=== PATIENT | male | born 1975 | race Caucasian/White ===

== ENCOUNTER 2017-10-02 07:23 | Observation (INO) | payer BC, OTHER ==
[2017-09-27 08:48] VITALS: BMI 35.0
[~2017-10-02] VITALS: Ht 180.3 cm; Wt 114.5 kg
[2017-10-02] VITALS (10 sets, daily range): BP systolic 126–189; BP diastolic 72–90; PULSE 75–97; TEMP 36–37; O2SAT 96–100; Ht 180.3 cm; Wt 114.5 kg
[~2017-10-02 07:23] MED LIST: CEFAZOLIN 2000MG IV PUSH 15 ML IV SCH; LACTATED RINGER'S 1000ML 1,000 ML IV SCH; MESA1TAB4 PO; METO100T44 PO; MISC4CAP PO; OMEG10007 PO
[2017-10-02] MEDS ORDERED: FENTANYL CITRATE INJ 50 MCG/1 ML 2 ML VIAL ONE ×5 (09:49→13:30)
[2017-10-02] MEDS ORDERED: LIDOCAINE HCL 2% 2 ML VIAL (20MG/ML) ONE (09:49)
[2017-10-02] MEDS ORDERED: ONDANSETRON INJ 2 MG/ML 2 ML VIAL ONE (09:49)
[2017-10-02] MEDS ORDERED: MIDAZOLAM HCL 1 MG/ML 2ML VIAL ONE (09:49)
[2017-10-02] MEDS ORDERED: PROPOFOL IV EMULSION 10 MG/ML 20 ML VIAL IV ONE (09:49)
[2017-10-02] MEDS ORDERED: CEFAZOLIN SOD 1 GM VIAL ONE (09:53)
[2017-10-02] MEDS ORDERED: LIDOCAINE HCL 1% 20 ML VIAL ONE (09:53)
[2017-10-02] MEDS ORDERED: BUPIVACAINE 0.5 % 5 MG/1 ML MPF 30ML VIAL ONE (09:54)
[2017-10-02] MEDS ORDERED: BACITRACIN 50000 UNIT VIAL ONE (09:54)
--- NOTE | 2017-10-02 10:02 | History & Physical Bridge Note ---
H&P Re-Evaluation Bridge Note: I have examined the patient, reviewed the History & Physical and in the interval since the performance of the History & Physical I have noted the following changes of clinical significance: No changes noted
[2017-10-02] MEDS ORDERED: DEXAMETHASONE SOD INJ 4 MG/ML VIAL ONE (10:41)
[2017-10-02] MEDS ORDERED: SUCCINYLCHOLINE CHLORIDE 20 MG/ML 10 ML VIAL IV ONE (11:35)
[2017-10-02] MEDS ORDERED: ROCURONIUM BROMIDE 10 MG/ML 5 ML VIAL IV ONE (11:39)
--- NOTE | 2017-10-02 11:53 | [facility] Operative Report ---
Operative Report Operative Date Oct 02, 2017. Pre-Operative Diagnosis Suture sinus, right lower quadrant abdomen Post-Operative Diagnosis Suture sinus, right lower quadrant abdomen incisional hernia Procedure(s) Performed Wound Exploration, Removal of Suture Foreign Body Right lower quadrant repair incisional hernia Surgeon Dr. Donta Garrett Reports Developer Surgeon(s) None Estimated Blood Loss 50 ml Findings 3 suture sinuses and 4 sutures 3 cm incisional hernia Specimens Microbiology #1: Abdominal Wound Routine C/S, Gram Stain, Anerobic/Aerobic Sent to lab at 1036; carried by OR aide #2. Suture Sinus, Right Lower Quadrant Abdomen Routine C/S, Gram Stain, Anerobic/Aerobic Sent to lab at 1133;carried by OR aide #3. Tissue Culture, Explanted Suture, Right Lower Quadrant Abdomen Routine C/S, Gram Stain, Anerobic Aerobic Sent to lab at 1133;carried by OR aide Permanent: A.) Omentum Drains None Anesthesia Type General Complication(s) none Disposition Recovery Room / PACU I attest to the content of the Intraoperative Record and any orders documented therein. Any exceptions are noted below.
[2017-10-02] MEDS ORDERED: ATROPINE SULFATE 0.1 MG/ML 5ML SYR IV PRN (12:00)
[2017-10-02] MEDS ORDERED: LABETALOL HCL IV 5 MG/ML 20ML IV PRN (12:00)
[2017-10-02] MEDS ORDERED: HYDROCODONE/ACETAMIN 5/325MG TAB PO PRN (12:00)
[2017-10-02] MEDS ORDERED: HYDROmorphone INJ 2 MG/ML SYR/VIAL IV PRN (12:00)
[2017-10-02] MEDS ORDERED: EpHEDrine SULFATE INJ 50 MG/ML AMP IV PRN (12:00)
[2017-10-02] MEDS ORDERED: PROMETHAZINE HCL INJ 25 MG in SODIUM CHLORIDE 0.9% 50ML 50 ML IV PRN (12:00)
[2017-10-02] MEDS ORDERED: NALOXONE HCL 0.4 MG/1 ML VIAL/CARP IV PRN (12:00)
[2017-10-02] MEDS ORDERED: ONDANSETRON INJ 2 MG/ML 2 ML VIAL IV PRN (12:00)
[2017-10-02] MEDS ORDERED: FENTANYL CITRATE INJ 50 MCG/1 ML 2 ML VIAL IV PRN (12:00)
[2017-10-02] MEDS ORDERED: HYDROmorphone INJ 0.5 MG/0.5 ML SYR IV PRN (12:00)
[2017-10-02] MEDS ORDERED: FLUMAZENIL 0.1 MG/1 ML 10 ML VIAL IV PRN (12:00)
[2017-10-02] MEDS ORDERED: NALOXONE HCL 0.4 MG/1 ML VIAL/CARP ONE (12:44)
--- NOTE | 2017-10-02 13:50 | OPERATIVE REPORT ---
DATE OF OPERATION: 10/02/2017 NAME OF OPERATION: Wound exploration with removal of suture foreign bodies and debridement of suture sinuses and repair of incisional hernia. STAFF SURGEON: Dr. Garrett. ANESTHESIA: General. FINDINGS: Patient had a chronic suture sinus tract which was associated with significant scar tissue and at least 3 suture sinuses with suture foreign body and then an additional suture was found. This was all associated with the lower edge of an incisional hernia which contained a significant amount of omentum. PROCEDURE: Patient was brought in the operating room and placed on the operating table in supine position. His lower abdomen was prepped and draped in usual fashion. 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 This incision was opened. I carried dissection down through dense scar tissue, culturing the sinus tract and some of the tissue. I did encounter granulomas. It was somewhat difficult with the dissection because of the scar tissue. I did encounter some normal tissue and eventually found 3 suture foreign bodies associated with sinus tracts and significant granulation tissue. I also found an additional suture. During the debridement, we did enter the hernia sac which contained significant omentum and I felt that it was not going to be prudent to leave the omentum and hernia and try to leave the wound open for a wound VAC. At this point, the hernia sac was opened. The omentum was dissected free with some difficulty because of adhesions. Part of it was excised. The remainder reduced. The hernia defect was approximately 3 cm in diameter. During this exposure, I did find the third suture sinus and a fourth suture. At this point, I felt it would be prudent to close the defect primarily because of the infection and I did not want to place mesh using #1 PDS suture. After appropriate hemostasis and debridement of additional necrotic tissue, I packed the wound with antibiotic-soaked Kerlix and a gauze dressing. The patient was then transferred to recovery room in stable condition. Plan was to consult wound care and most likely place a wound VAC. I attest to the content of the Intraoperative Record and any orders documented therein. Any exception s are noted below.
[2017-10-02] MEDS ORDERED: LABETALOL HCL IV 5 MG/ML 20ML IV ONE ×2 (13:52)
[2017-10-02] MEDS ORDERED: IV FLUIDS COMPLETED PRN (15:15)
[2017-10-02] MEDS ORDERED: LACTATED RINGER'S 1000ML 1,000 ML IV SCH (15:15)
--- NOTE | 2017-10-02 15:17 | Medical Consult ---
Consultation Date of Consultation: Oct 02, 2017. Attending Physician: Donta Garrett M.D. History of Present Illness This is a patient with past medical history of ulcerative colitis. Home medications mesalamine, prednisone. Has been on ciprofloxacin in recent past. Other home medication of metoprolol succinate Patient of surgeon Dr. Donta Garrett Pre-Operative Diagnosis Suture sinus, right lower quadrant abdomen Post-Operative Diagnosis 10/02/17 Suture sinus, right lower quadrant abdomen, incisional hernia Procedure(s) Performed by surgeon 10/02/17 Wound Exploration, Removal of Suture Foreign Body Right lower quadrant, repair incisional hernia Hospitalist medicine consult primarily asked for medical management of monitoring patient's respiratory status post-op Patient arrived on medical wards with BIPAP, mentating well, follows directions , vitals stable 128/80 with heart rate 82 bpm, 100% saturation on BIPAP, Temp is 36.7 F Hospitalist ordered labs and chest X ray, labs and X rays reviewed Patient transitioned from BIPAP to nasal cannula then to room air Social History Smoking Status: Former Smoker Drug Use: none Marital Status: single Occupation Status: employed Allergies Coded Allergies: No Known Allergies (Unverified , 09/27/17) Current Inpatient Medications Current Inpatient Medications Medications (Trade) Dose Ordered Sig/Karolina Route Start Time Stop Time Status Last Admin Dose Admin Cefazolin Sodium 15 ml @ 3.75 mls/ min PREOP IV 10/02/17 06:00 10/02/17 18:00 10/02/17 10:06 3.75 MLS/MIN Lactated Ringer's 1,000 ml @ 15 mls/hr Q24H IV 10/02/17 06:00 10/03/17 05:59 10/02/17 08:06 15 MLS/HR Metoprolol Succinate (Toprol Xl Tab) 100 mg BID PO 10/02/17 21:00 11/01/17 20:59 UNV Non-Formulary Medication (Mesalamine (Asacol Hd)) 1,600 mg BID PO 10/02/17 21:00 11/01/17 20:59 UNV Lactated Ringer's 1,000 ml @ 50 mls/hr Q20H IV 10/02/17 12:00 11/01/17 11:59 UNV Acetaminophen/ Hydrocodone Bitart ([place] 5/325 Tab) 1 tab Q4 PRN PO 10/02/17 12:00 10/16/17 11:59 UNV Acetaminophen/ Hydrocodone Bitart ([place] 5/325 Tab) 2 tab Q4 PRN PO 10/02/17 12:00 10/16/17 11:59 UNV Hydromorphone HCl (Dilaudid Inj) 0.5 mg Q3H PRN IV 10/02/17 12:00 10/16/17 11:59 UNV Hydromorphone HCl (Dilaudid Inj) 1 mg Q3H PRN IV 10/02/17 12:00 10/16/17 11:59 UNV Promethazine HCl 25 mg/Sodium Chloride 51 ml @ 204 mls/hr Q6H PRN IV 10/02/17 12:00 11/01/17 11:59 UNV Ondansetron HCl (Zofran Inj) 4 mg Q6H PRN IV 10/02/17 12:00 11/01/17 11:59 UNV Senna/Docusate Sodium (Senokot S Tab) 1 tab BID PO 10/02/17 21:00 11/01/17 20:59 UNV Piperacillin Sod/ Tazobactam Sod 3.375 gm/Dextrose 115 ml @ 28.75 mls/ hr Q8 IV 10/02/17 14:00 10/12/17 13:59 UNV Fentanyl Citrate (Fentanyl Inj) 25 mcg Q5M PRN IV 10/02/17 12:00 10/03/17 11:59 UNV Naloxone HCl (Narcan Inj) 0.2 mg Q2M PRN IV 10/02/17 12:00 10/03/17 11:59 UNV Flumazenil (Romazicon Inj) 0.2 mg Q2M PRN IV 10/02/17 12:00 10/03/17 11:59 UNV Labetalol HCl (Normodyne IV) 5 mg Q5M PRN IV 10/02/17 12:00 10/03/17 11:59 UNV Ephedrine Sulfate (EpHEDrine SULFATE INJ) 5 mg Q5M PRN IV 10/02/17 12:00 10/03/17 11:59 UNV Atropine Sulfate (Atropine Sulfate 0.1mg/ml Inj) 0.5 mg Q1M PRN IV 10/02/17 12:00 10/03/17 11:59 UNV Miscellaneous (Iv Fluids Completed) 1 ea PRN PRN N/A 10/02/17 15:15 10/02/18 15:14 UNV Review of Systems Constitutional: No fever Eyes: No worsening of vision, No eye pain, No diplopia ENT: No hearing loss, No unusual epistaxis, No nasal symptoms Respiratory: No cough, No shortness of breath Cardiovascular: No chest pain, No palpitations Abdomen: No nausea, No vomiting Musculoskeletal: No joint pain, No muscle pain, No calf pain Genitourinary - Male: No hematuria, No dysuria Neurologic: No numbness/tingling Integumentary: No rash, No itch Physical Exam Date Time Temp Pulse Resp B/P (MAP) Pulse Ox O2 Delivery O2 Flow Rate FiO2 10/02/17 14:32 81 15 100 10/02/17 14:32 80 15 10/02/17 14:30 137/82 10/02/17 14:29 135/80 10/02/17 14:27 80 14 10/02/17 14:27 82 14 100 10/02/17 14:22 82 26 100 10/02/17 14:22 79 26 10/02/17 14:17 77 17 10/02/17 14:17 76 17 100 10/02/17 14:16 135/80 10/02/17 14:12 85 20 99 10/02/17 14:12 76 20 10/02/17 14:11 134/77 10/02/17 14:10 36.6 80 17 134/77 100 BiPAP 100 10/02/17 14:07 82 17 100 10/02/17 14:07 83 17 10/02/17 14:06 132/81 10/02/17 14:02 83 18 100 10/02/17 14:02 83 18 10/02/17 14:01 134/77 10/02/17 13:57 80 20 10/02/17 13:57 80 20 99 10/02/17 13:56 134/80 10/02/17 13:52 82 23 98 10/02/17 13:52 82 23 10/02/17 13:51 134/73 10/02/17 13:47 82 18 10/02/17 13:47 82 18 99 10/02/17 13:46 129/67 10/02/17 13:42 77 23 10/02/17 13:42 77 23 99 10/02/17 13:41 80 18 120/67 99 10/02/17 13:41 80 18 10/02/17 13:36 86 18 10/02/17 13:36 87 18 129/78 99 10/02/17 13:31 85 27 10/02/17 13:31 85 27 127/80 99 10/02/17 13:26 88 21 125/73 99 10/02/17 13:26 87 21 10/02/17 13:21 88 21 10/02/17 13:21 88 21 132/72 99 10/02/17 13:16 92 16 139/73 99 10/02/17 13:16 92 16 10/02/17 13:16 96 98 100 10/02/17 13:11 96 16 138/86 98 10/02/17 13:11 96 16 10/02/17 13:07 105/87 10/02/17 13:06 102 10/02/17 13:06 102 93 10/02/17 13:06 36.0 101 18 105/87 99 BiPAP 100 10/02/17 07:55 36.8 75 20 189/75 (113) 99 Room Air General Appearance: no apparent distress Head: normocephalic, atraumatic Eyes: normal inspection, EOMI, sclerae normal ENT: normal ENT inspection, hearing grossly normal, pharynx normal Neck: supple, no JVD, trachea midline Respiratory/Chest: chest non-tender, lungs clear, normal breath sounds, no respiratory distress, no accessory muscle use Cardiovascular: regular rate, rhythm, no edema, no JVD, no murmur, normal peripheral pulses Abdomen/GI: normal bowel sounds, soft, no organomegaly, no pulsatile mass, + tenderness, + pertinent finding (dressing over surgical site) Back: normal inspection, no muscle spasm, normal range of motion Extremities/Musculoskelatal: normal inspection, no calf tenderness, no pedal edema, normal range of motion, non-tender Neurologic/Psych: alert, normal mood/affect, oriented x 3 Skin: normal color, warm/dry, no rash Assessment & Plan Patient of surgeon Dr. Donta Garrett Pre-Operative Diagnosis Suture sinus, right lower quadrant abdomen Post-Operative Diagnosis 10/02/17 Suture sinus, right lower quadrant abdomen, incisional hernia Procedure(s) Performed by surgeon 10/02/17 Wound Exploration, Removal of Suture Foreign Body Right lower quadrant, repair incisional hernia Hospitalist medicine consult primarily asked for medical management of monitoring patient's respiratory status post-op Patient arrived on medical wards with BIPAP, mentating well, follows directions , vitals stable 128/80 with heart rate 82 bpm, 100% saturation on BIPAP, Temp is 36.7 F Hospitalist ordered labs and chest X ray, labs and X rays reviewed Patient transitioned from BIPAP to nasal cannula and now on room air Chest X ray without evidence for aspiration Labs shows Leukocytosis of WBC 18, 000 compared 9700 on 09/22/17 trend CBC blood cultures should be sent if patient becomes febrile patient has active Zosyn orders Ulcerative colitis history would hold mesalamine for now as patient is post-op day 0 Cardiac / Hypertension patient reports that he is on metoprolol succinate for blood pressure but dosing is 100 mg BID and not a typical blood pressure control medication/dosage have ordered 100 mg daily to limit rate beta blocking effects for now patient reports that he to start lisinopril for blood pressure but never took the medication because of the surgery he had just received hydralazine prn if systolic blood pressure above 160 DVT ppx: SCDs
[2017-10-02] MEDS ORDERED: PROMETHAZINE HCL INJ 12.5 MG in SODIUM CHLORIDE 0.9% 50ML 50 ML IV PRN (15:30)
--- NOTE | 2017-10-02 15:45 | DIAGNOSTIC IMAGING REPORT ---
CHEST ONE VIEW PORTABLE HISTORY: 42 years-old Male rule out aspiration acute cough with concern for aspiration COMPARISON: Acute abdominal series radiographs 01/16/2014 TECHNIQUE: Portable AP view of the chest FINDINGS: Cardiac silhouette is within the upper limits of normal in size, likely accentuated by technique. No pneumothorax, pleural effusion, focal airspace consolidation or overt pulmonary edema. Mild right hemidiaphragmatic elevation. Bones of the chest appear grossly intact. IMPRESSION: No acute process. The above report was generated using voice recognition software. It may contain grammatical, syntax or spelling errors. Electronically signed by: Maulik Longoria M.D. 10/02/2017 3:44 PM Dictated Date/Time: 10/02/2017 3:43 PM
--- NOTE | 2017-10-02 15:47 | Anesthesiology Progress Note ---
Anesthesia Post Op Note Date & Time Oct 02, 2017 at 15:12 Vital Signs Pain Intensity: 4 Vital Signs Past 12 Hours Date Time Temp Pulse Resp B/P (MAP) Pulse Ox O2 Delivery O2 Flow Rate FiO2 10/02/17 14:32 81 15 100 10/02/17 14:32 80 15 10/02/17 14:30 137/82 10/02/17 14:29 135/80 10/02/17 14:27 80 14 10/02/17 14:27 82 14 100 10/02/17 14:22 82 26 100 10/02/17 14:22 79 26 10/02/17 14:17 77 17 10/02/17 14:17 76 17 100 10/02/17 14:16 135/80 10/02/17 14:12 85 20 99 10/02/17 14:12 76 20 10/02/17 14:11 134/77 10/02/17 14:10 36.6 80 17 134/77 100 BiPAP 100 10/02/17 14:07 82 17 100 10/02/17 14:07 83 17 10/02/17 14:06 132/81 10/02/17 14:02 83 18 100 10/02/17 14:02 83 18 10/02/17 14:01 134/77 10/02/17 13:57 80 20 10/02/17 13:57 80 20 99 10/02/17 13:56 134/80 10/02/17 13:52 82 23 98 10/02/17 13:52 82 23 10/02/17 13:51 134/73 10/02/17 13:47 82 18 10/02/17 13:47 82 18 99 10/02/17 13:46 129/67 10/02/17 13:42 77 23 10/02/17 13:42 77 23 99 10/02/17 13:41 80 18 120/67 99 10/02/17 13:41 80 18 10/02/17 13:36 86 18 10/02/17 13:36 87 18 129/78 99 10/02/17 13:31 85 27 10/02/17 13:31 85 27 127/80 99 10/02/17 13:26 88 21 125/73 99 10/02/17 13:26 87 21 10/02/17 13:21 88 21 10/02/17 13:21 88 21 132/72 99 10/02/17 13:16 92 16 139/73 99 10/02/17 13:16 92 16 10/02/17 13:16 96 98 100 10/02/17 13:11 96 16 138/86 98 10/02/17 13:11 96 16 10/02/17 13:07 105/87 10/02/17 13:06 102 10/02/17 13:06 102 93 10/02/17 13:06 36.0 101 18 105/87 99 BiPAP 100 10/02/17 07:55 36.8 75 20 189/75 (113) 99 Room Air Notes Anesthetic Complications: Pt was for an removal of a foreign body from his stomach from a retained suture of a prior abdominal surgery. Dr. Garrett had initially stated he would be okay with no muscle relaxation so we placed an LMA on patient. 300 mcg IV fentanyl was titrated in during this part of case patient was breathing on own without pressure support pulling volumes ~480 breathing 16-20 bpm. ETCO2 was maintained 38-42. GISELLE Olguin relieved GISELLE Delgado for lunch. During this time Dr. Garrett requested patient be intubated because patient's stomach was moving too much. Pt was intubated with succinylcholine. He had to be repositioned and a glidescope was used but otherwise was an easy intubation. Dr Garrett continued to have difficulties so 25 mg IV rocuronium was given to patient. At this time Mayela DESAI returned to OR. Pt's BP had spiked up so 50 mcg of IV fentanyl were given. Dr. Garrett was able to successfully complete case. Patient had 4/4 twitches when reversed with 5 mg Neostigmine and 0.8 mg Robinol. Patient was breathing on pressure support 8 and 5 of peep respiration rate 12 per minute. Pt started becoming agitated on emergence. Patient was spontaneously breathing volumed of 389 with respiration rate 14. Pt continued to have agitation and was swinging arms to patient was extubated. on extubation pt obstructed. An oral airway was placed. Positive pressure was applied and patient looked to be breathing weakly. Pt was given and additional [address] Schmidt was notified at this time. A nasal airway was placed. Dr Schmidt was in OR and glidescope was brought to room. Pt was reintubated. Pt was still agitated to N20 was on and patient calmed. Pt was titrated off of Pressure support starting with 15 pressure support and 8 of peep. We slowly titrated off of the pressure support patient was on 5 pressure support 5 of peep. N2O was titrated off. Patient was woken up. Spontaneously breathing 20 breaths per minute pulling volumes 450 and becoming agitated again. Pt was picking his head off bed and swinging his arms while spontaneously breathing. Pt was extubated Oral airway was in place on extubation patient again started to decompensate SpO2 dropped to 70s. INSERT MOLDING OPERATOR assisted patient breathing. by the time Dr. Schmidt arrived to room patient was sating [address] Schmidt took over and decided to reintubate patient. Pt was reintubated no sedation was used. Pt was placed on PSV. Dr. Schmidt left to write an order to place pt on Bipap in PACU. Dr. Schmidt arrived back to OR. at thie time patient was breathing on his own and desating into the 80s. 1253 Dr. Schmidt decided to give 80 mcg of Narcan. Pt was extubated and moved to his bed. A facemask was placed. Pt desated to 77 at this time. CPAP with the anesthesia circuit was applied. Patient's SpO2 started rising.1245 Another 80 mcg of Narcan was given. At this time it was decided to transport patient to the PACU on Bipap. Respiratory was contacted. Pt was transported and stable on Bipap in the PACU.
[2017-10-02 15:52] LABS: BASO % 0.1 %; BASO ABS # 0.02 K/uL (0-0.2); EOS % 0.1 %; EOS ABS # 0.02 K/uL (0-0.5); HEMATOCRIT 43.6 % (42-52); HEMOGLOBIN 14.9 g/dL (14.0-18.0); LYMPH % 3.2 %; LYMPH ABS # 0.59 K/uL (1.2-3.4); MEAN CORPUSCULAR HEMOGLOBIN 29.4 pg (25-34); MEAN CORPUSCULAR HGB CONC 34.2 g/dl (32-36); MEAN PLATELET VOLUME 10.6 fL (7.4-10.4); MONO % 0.9 %; MONO ABS # 0.17 K/uL (0.11-0.59); NEUT % 95.2 %; NEUT ABS # 17.81 K/uL (1.4-6.5); PLATELET COUNT 170 K/uL (130-400); RED CELL DISTRIBUTION WIDTH SD 42.8 fL (36.4-46.3); WHITE BLOOD COUNT 18.71 K/uL (4.8-10.8)
[2017-10-02] MEDS ORDERED: PIPERACILL/TAZOBAC IV 3.375 GM in NSS 100 ML IV ONE (16:00)
[2017-10-02] MEDS ORDERED: PIPERACILL/TAZOBAC CONSULT ACTIVE PRN (16:00)
[2017-10-02] MEDS: HYDROCODONE/ACETAMIN 5/325MG TAB PO PRN ×2 (16:05→21:18)
[2017-10-02 16:16] LABS: CALCIUM 7.8 mg/dl (8.5-10.1); CREATININE 0.93 mg/dl (0.60-1.40); POTASSIUM 3.8 mmol/L (3.5-5.1)
[2017-10-02] MEDS: METOPROLOL SUCC 50MG EXT REL TAB PO SCH (21:18)
[2017-10-02] MEDS: DOCUSATE SODIUM/SENNA 50/8.6MG TAB PO SCH (21:18)
[2017-10-02] MEDS: PIPERACILL/TAZOBAC IV 3.375 GM in SODIUM CHLORIDE 0.9% 100ML 100 ML IV SCH (22:01)
[2017-10-02] MEDS ORDERED: HydrALAZINE HCL 20 MG/ML VIAL IV. PRN (23:00)
[2017-10-03 00:05] VITALS: O2SAT 99
[2017-10-03] MEDS: HYDROCODONE/ACETAMIN 5/325MG TAB PO PRN (02:47)
[2017-10-03 02:57] VITALS: BP 159/90; PULSE 87; TEMP 36.7; O2SAT 96
[2017-10-03] MEDS: PIPERACILL/TAZOBAC IV 3.375 GM in SODIUM CHLORIDE 0.9% 100ML 100 ML IV SCH (06:17)
--- NOTE | 2017-10-03 06:48 | Surgery Progress Note ---
Surgery Progress Note Date of Service Oct 03, 2017. Subjective breathing comfortably pain controlled Objective Vital Signs: Date Time Temp Pulse Resp B/P (MAP) Pulse Ox O2 Delivery O2 Flow Rate FiO2 10/03/17 02:57 36.7 87 16 159/90 (113) 96 Room Air 10/03/17 00:05 99 Room Air 2.0 10/02/17 23:50 36.7 81 18 149/90 (109) 96 Room Air 10/02/17 18:28 36.5 88 18 137/72 (93) 97 Nasal Cannula 2.0 10/02/17 17:03 36.5 81 18 126/76 (93) 99 BiPAP 10/02/17 16:07 36.0 97 18 131/82 (98) 99 BiPAP 10/02/17 15:46 99 BiPAP 10/02/17 15:30 37.0 80 22 138/87 (104) 99 BiPAP 45 10/02/17 15:00 36.7 80 18 128/80 (96) 100 BiPAP 15.0 45 10/02/17 14:45 85 100 45 10/02/17 14:32 81 15 100 10/02/17 14:32 80 15 10/02/17 14:30 137/82 10/02/17 14:29 135/80 10/02/17 14:27 80 14 10/02/17 14:27 82 14 100 10/02/17 14:22 82 26 100 10/02/17 14:22 79 26 10/02/17 14:17 77 17 10/02/17 14:17 76 17 100 10/02/17 14:16 135/80 10/02/17 14:12 85 20 99 10/02/17 14:12 76 20 10/02/17 14:11 134/77 10/02/17 14:10 36.6 80 17 134/77 100 BiPAP 100 10/02/17 14:07 82 17 100 10/02/17 14:07 83 17 10/02/17 14:06 132/81 10/02/17 14:02 83 18 100 10/02/17 14:02 83 18 10/02/17 14:01 134/77 10/02/17 13:57 80 20 10/02/17 13:57 80 20 99 10/02/17 13:56 134/80 10/02/17 13:52 82 23 98 10/02/17 13:52 82 23 10/02/17 13:51 134/73 10/02/17 13:47 82 18 10/02/17 13:47 82 18 99 10/02/17 13:46 129/67 10/02/17 13:42 77 23 10/02/17 13:42 77 23 99 10/02/17 13:41 80 18 120/67 99 10/02/17 13:41 80 18 10/02/17 13:36 86 18 10/02/17 13:36 87 18 129/78 99 10/02/17 13:31 85 27 10/02/17 13:31 85 27 127/80 99 10/02/17 13:26 88 21 125/73 99 10/02/17 13:26 87 21 10/02/17 13:21 88 21 10/02/17 13:21 88 21 132/72 99 10/02/17 13:16 92 16 139/73 99 10/02/17 13:16 92 16 10/02/17 13:16 96 98 100 10/02/17 13:11 96 16 138/86 98 10/02/17 13:11 96 16 10/02/17 13:07 105/87 10/02/17 13:06 102 10/02/17 13:06 102 93 10/02/17 13:06 36.0 101 18 105/87 99 BiPAP 100 10/02/17 07:55 36.8 75 20 189/75 (113) 99 Room Air General Appearance: no apparent distress Respiratory/Chest: no respiratory distress Incision(s): intact, drainage (expected) Laboratory Results: Results Past 24 Hours Test 10/02/17 15:33 10/03/17 04:44 Range/Units White Blood Count 18.71 4.8-10.8 K/uL Red Blood Count 5.07 4.7-6.1 M/uL Hemoglobin 14.9 14.0-18.0 g/dL Hematocrit 43.6 42-52 % Mean Corpuscular Volume 86.0 80-100 fL Mean Corpuscular Hemoglobin 29.4 25-34 pg Mean Corpuscular Hemoglobin Concent 34.2 32-36 g/dl Platelet Count 170 130-400 K/uL Mean Platelet Volume 10.6 7.4-10.4 fL Neutrophils (%) (Auto) 95.2 % Lymphocytes (%) (Auto) 3.2 % Monocytes (%) (Auto) 0.9 % Eosinophils (%) (Auto) 0.1 % Basophils (%) (Auto) 0.1 % Neutrophils # (Auto) 17.81 1.4-6.5 K/uL Lymphocytes # (Auto) 0.59 1.2-3.4 K/uL Monocytes # (Auto) 0.17 0.11-0.59 K/uL Eosinophils # (Auto) 0.02 0-0.5 K/uL Basophils # (Auto) 0.02 0-0.2 K/uL RDW Standard Deviation 42.8 36.4-46.3 fL RDW Coefficient of Variation 14.0 11.5-14.5 % Immature Granulocyte % (Auto) 0.5 % Immature Granulocyte # (Auto) 0.10 0.00-0.02 K/uL Venous Blood pH 7.30 7.36-7.41 Venous Blood Partial Pressure CO2 47 38.0-50.0 mmHg Venous Blood Partial Pressure O2 41 mmHg Venous Blood HCO3 22 mmol/L Venous Blood Oxygen Saturation 71.7 % Venous Blood Base Excess -4.2 mEq/L Sodium Level 138 136-145 mmol/L Potassium Level 3.8 3.5-5.1 mmol/L Chloride Level 105 98-107 mmol/L Carbon Dioxide Level 24 21-32 mmol/L Anion Gap 9.0 3-11 mmol/L Blood Urea Nitrogen 13 7-18 mg/dl Creatinine 0.93 0.60-1.40 mg/dl Est Creatinine Clear Calc Drug Dose 131.8 ml/min Estimated GFR () 116.1 Estimated GFR (Non- 100.2 BUN/Creatinine Ratio 13.9 10-20 Random Glucose 214 70-99 mg/dl Calcium Level 7.8 8.5-10.1 mg/dl Total Bilirubin 0.6 0.2-1 mg/dl Aspartate Amino Transf (AST/SGOT) 32 15-37 U/L Alanine Aminotransferase (ALT/SGPT) 32 12-78 U/L Alkaline Phosphatase 136 45-117 U/L Total Protein 7.0 6.4-8.2 gm/dl Albumin 3.0 3.4-5.0 gm/dl Globulin 4.0 2.5-4.0 gm/dl Albumin/Globulin Ratio 0.8 0.9-2 Microbiology Results 10/02/17 Gram Stain - Final, Resulted 10/02/17 Bacterial Culture, Resulted Pending 10/02/17 Gram Stain - Final, Resulted 10/02/17 Bacterial Culture, Resulted Pending 10/02/17 Gram Stain, Received Pending 10/02/17 Bacterial Culture, Received Pending Assessment & Plan 10/03/17- s/p wound exploration for chronic infection- infected suture foreign bodies- associated with hernia- absorbable sutures placed- old prolene sutures removed.- Wound packed open. Cult pending, will place on Bactrim, for wound eval- possible wound vac- possible d/c later today
[2017-10-03] MEDS ORDERED: SULF800T23 PO (06:59)
[2017-10-03] MEDS ORDERED: HYDR-5688 PO (06:59)
[2017-10-03 07:55] VITALS: BP 173/85; PULSE 85; TEMP 37.1; O2SAT 96
[2017-10-03 08:04] LABS: EOS % 0.1 %; EOS ABS # 0.01 K/uL (0-0.5); HEMATOCRIT 42.7 % (42-52); HEMOGLOBIN 14.9 g/dL (14.0-18.0); IG# 0.06 K/uL (0.00-0.02); LYMPH % 7.6 %; LYMPH ABS # 1.09 K/uL (1.2-3.4); MEAN CELL VOLUME 84.9 fL (80-100); MEAN CORPUSCULAR HEMOGLOBIN 29.6 pg (25-34); MEAN CORPUSCULAR HGB CONC 34.9 g/dl (32-36); MEAN PLATELET VOLUME 10.8 fL (7.4-10.4); MONO % 9.9 %; MONO ABS # 1.42 K/uL (0.11-0.59); NEUT ABS # 11.76 K/uL (1.4-6.5); PLATELET COUNT 186 K/uL (130-400); RED CELL DISTRIBUTION WIDTH CV 13.9 % (11.5-14.5); RED CELL DISTRIBUTION WIDTH SD 42.1 fL (36.4-46.3); WHITE BLOOD COUNT 14.34 K/uL (4.8-10.8)
--- NOTE | 2017-10-03 08:14 | Anesthesiology Progress Note ---
Anesthesia Post Op Note Date & Time Oct 03, 2017 at 08:13 Vital Signs Vital Signs Past 12 Hours Date Time Temp Pulse Resp B/P (MAP) Pulse Ox O2 Delivery O2 Flow Rate FiO2 10/03/17 07:55 37.1 85 18 173/85 (114) 96 Room Air 10/03/17 02:57 36.7 87 16 159/90 (113) 96 Room Air 10/03/17 00:05 99 Room Air 2.0 10/02/17 23:50 36.7 81 18 149/90 (109) 96 Room Air Notes Mental Status: alert / awake / arousable, participated in evaluation Pt Amnestic to Procedure: Yes Nausea / Vomiting: adequately controlled Pain: adequately controlled Airway Patency, RR, SpO2: stable & adequate BP & HR: stable & adequate Hydration State: stable & adequate Anesthetic Complications: no major complications apparent
[2017-10-03 08:28] LABS: ALBUMIN 3.4 gm/dl (3.4-5.0); CALCIUM 8.4 mg/dl (8.5-10.1); CREATININE 0.69 mg/dl (0.60-1.40); POTASSIUM 3.8 mmol/L (3.5-5.1)
[2017-10-03 08:31] LABS: TOTAL PROTEIN 7.3 gm/dl (6.4-8.2)
[2017-10-03] MEDS ORDERED: METOPROLOL SUCC 50MG EXT REL TAB PO SCH (09:00)
[2017-10-03] MEDS ORDERED: SULFAMETHOXAZOLE/TRIMETHOPRIM DS 800/160MG TAB PO SCH (09:00)
[2017-10-03] MEDS: METOPROLOL SUCC 50MG EXT REL TAB PO SCH (09:19)
[2017-10-03] MEDS: DOCUSATE SODIUM/SENNA 50/8.6MG TAB PO SCH (09:20)
[2017-10-03] MEDS ORDERED: MESALAMINE DR TABLET 800 MG TABDR PO SCH (11:00)
--- NOTE | 2017-10-03 11:17 | Discharge Instructions ---
Discharge Instructions Date of Service Oct 03, 2017. Admission Reason for Admission: Suture Sinus; Cellulitis Right Abdominal Wall Discharge Discharge Diagnosis / Problem: suture sinus, hernia Discharge Goals Goal(s): Decrease discomfort, Improve function, Improve disease control Activity Recommendations Activity Limitations: as noted below Lifting Limitations: no more than 25 pounds Exercise/Sports Limitations: until after follow-up appointment May Resume Sexual Activity: when tolerated Shower/Bathe: tomorrow Driving or Machine Use: resume 3 days after discharge . Instructions / Follow-Up Instructions / Follow-Up SPECIAL CARE INSTRUCTIONS: * Cover incisions and change daily for comfort/drainage. * May use ibuprofen for pain as tolerated. * Expect some swelling and bruising. Call your doctor if: * Temperature above 101 degrees * Pain not relieved by pain medicine ordered * There is increased drainage or redness from any incision * You have any unanswered questions or concerns [phone]. FOLLOW UP VISIT: If not already scheduled, please call the office for a follow-up visit. wound clinic as scheduled OFFICE PHONE NUMBER: Dr. Garrett Office please call for appt for 2-3 weeks Current Hospital Diet Patient's current hospital diet: Regular Diet Discharge Diet Recommended Diet: Regular Diet Procedures Procedures Performed: Wound Exploration, Removal of Suture Foreign Body Right lower quadrant, Debridement, Incisional hernia repair Pending Studies Studies pending at discharge: no Work Instructions Return To Work: after follow-up (will not be able to work for 6 weeks) Medical Emergencies . Who to Call and When: Medical Emergencies: If at any time you feel your situation is an emergency, please call 911 immediately. . Non-Emergent Contact Non-Emergency issues call your: Primary Care Provider, Surgeon . "Provider Documentation" section prepared by Donta Garrett. .
[2017-10-03 11:57] VITALS: BP 173/85; PULSE 85; TEMP 37.1; O2SAT 96
--- NOTE | 2017-10-05 09:03 | Wound Consultation: Inpatient ---
Wound Consultation Date of Consultation: Oct 03, 2017. Attending Physician: Donta Garrett M.D. Reason for Consultation: Postoperative abdominal wound History of Present Illness Patient was seen today for further evaluation following a postoperative abdominal wound after excisional removal of an abscess in the right lower quadrant of the abdomen per Dr. Garrett yesterday. Patient currently denies any significant pain in this area. Patient denies any fever chills or night sweats. Patient denies any chest pain shortness of breath nausea or vomiting. Patient denies any other systemic complaints at this time. Social History Smoking Status: Former Smoker Drug Use: none Marital Status: single Occupation Status: employed Allergies Coded Allergies: No Known Allergies (Unverified , 09/27/17) Home Medications Scheduled Fish Oil ([place]-3), 1 CAP PO PRN Mesalamine (Asacol Hd), 1,600 MG PO BID Metoprolol Succ (Toprol Xl) (Toprol-Xl ), 100 MG PO BID Probiotic Product (Align), 4 MG PO PRN Sulfa/Trimethoprim (Bactrim Ds 800MG/160MG), 1 TAB PO BID Scheduled PRN Hydrocodone/Acetaminophen 5MG/325MG ([place] 5MG/325MG), 1-2 TABLET PO q 6 hrs PRN for Pain Physical Exam General: The patient is lying in hospital bed in no distress. Alert, cooperative and appropriate to all questions. HEENT: Pupils equal and reactive to light. Sclera clear, EOM intact. Neck: Supple, No JVD noted Chest: CTA in all becerra. No deformity Heart: RRR without murmurs, S3, S4, thrills, rubs or heaves Abdomen: Soft, No masses, large abdominal wound is present in the right lower quadrant measuring 10 x 3 x 5.5 cm. Undermining is present at 3:00 1.5 cm, 6:00 1.5 cm, 9:00 1.5 cm and 12:00 6.3 cm. Fascia is exposed at the base. No central slough or eschar formation noted. No surrounding tenderness or fluctuance present. Neurological: Alert and oriented x3. No focal deficits. Assessment & Plan Assessment: Postoperative abdominal wound Plan: No debridement is indicated at this time. The wound site will be packed with Aquacel Ag and gauze. Patient is scheduled to be discharged later today and will be followed up in the outpatient wound clinic tomorrow for wound VAC therapy instillation. This was explained in detail to the patient and the patient's family and they are in agreement with this plan.
--- NOTE | 2017-10-06 14:33 | DISCHARGE SUMMARY ---
PRIMARY DISCHARGE DIAGNOSIS: Suture sinus right lower quadrant with incisional hernia. SECONDARY DISCHARGE DIAGNOSES: 1. Ulcerative colitis. 2. Hypertension. PROCEDURES PERFORMED: Wound exploration with removal of suture foreign body and debridement of suture sinuses with repair of incisional hernia. CONSULTATIONS: 1. [facility] hospitalist to assist in medical management. 2. Wound clinic, Dr. Caprenter. HOSPITAL COURSE: Patient is a 42-year-old male with a chronic drainage from right lower quadrant wound. He has a history of temporary ileostomy following sigmoid colectomy. He is now taken to the operating room for wound exploration. There were several sinuses related to suture. These were removed. There was an incisional hernia which was repaired with absorbable suture. The wound was packed. He was transferred to the surgical floor for overnight observation. He did require BiPAP postoperatively. Hospital service was consulted to assist with this as well as routine medical management. He was able to transition from BiPAP to nasal cannula that afternoon. On postoperative day 1, he was doing well. Wound care was consulted. The wound was packed with Aquacel Ag and an outpatient followup arranged for possible Wound VAC. He was stable for discharge on postoperative day 1. DISCHARGE INSTRUCTIONS: Discharge home. Follow up with wound clinic tomorrow. Follow up with Dr. Garrett in approximately 2 weeks. DISCHARGE MEDICATIONS: Vista 1-2 tablets every 6 hours as needed, Bactrim DS 1 tablet p.o. b.i.d. #10. Resume home medications, Asacol 1600 mg p.o. b.i.d., Toprol-XL 100 mg b.i.d., daily probiotic, and omega 3 supplements.
[2017-10-23] MEDS ORDERED: CEPH500C PO (09:01)
== END 2017-10-03 12:14 | disposition home or self-care (01) ==
LOC: C.ACU 07:23 → C.MSW 12:08 → ENRESERV 14:22
PROVIDERS: ADMIT Surgery; ATTEND Surgery
DX: T81.89XA Other complications of procedures, not elsewhere classified, initial encounter (principal); L03.311 Cellulitis of abdominal wall; I10 Essential (primary) hypertension; Z82.49 Family history of ischemic heart disease and other diseases of the circulatory system; Z87.891 Personal history of nicotine dependence; E66.9 Obesity, unspecified; Y84.8 Other medical procedures as the cause of abnormal reaction of the patient, or of later complication, without mention of misadventure at the time of the procedure

== ENCOUNTER 2021-06-03 08:17 | Inpatient (IN) ==
--- NOTE | 2021-06-03 08:49 | Emergency Department Note ---
History of Present Illness General Chief complaint: Stroke/CVA Symptoms Stated complaint: CANNOT TALK/WEAK Time Seen by Provider: 06/03/21 08:27 Source: patient Mode of arrival: ambulatory Limitations: no limitations History of Present Illness Maximum Pain Intensity: 0 This patient is a 46-year-old male who comes in after having difficulty talking and acting sluggish since Monday night. It is now . His father saw him today and made him come to the ER he said he did not want to come. He denies any pain in his throat. No difficulty speaking or swallowing. No chest pain no fever chills no headache. No fall or trauma. No focal numbness or weakness. He does have history of hyperthyroidism and ulcerative colitis but denies that he is on any medication for these at present. He has not been vacc inated for Covid. He is in no respiratory symptoms or cough. No nausea vomiting diarrhea. No rash. No urinary symptoms. No chest pain. He did have symptoms like this once before when his thyroid was abnormal his father says. Home Medications Medication Instructions Recorded Confirmed Type metoprolol succinate 100 mg 100 mg PO BID #180 tab 02/23/21 06/03/21 Rx tablet,extended release 24 hr amlodipine 5 mg-olmesartan 20 mg 1 tab PO QAM 06/03/21 06/03/21 History tablet cholecalciferol (vitamin D3) 125 125 mcg PO QAM 06/03/21 06/03/21 History mcg (5,000 unit) capsule vitamin E acetate 134 mg (200 0 mg PO QAM 06/03/21 06/03/21 History unit) capsule Allergies Allergy/AdvReac Type Severity Reaction Status Date / Time lisinopril Allergy Verified 06/03/21 09:38 Past Med/Surg History Medical History Multinodular goiter Tachycardia Surgical History History of bowel resection History of hernia repair History of hip surgery Family History Father Asthma Hypertension Denies family history of Ovarian cancer Prostate cancer Diabetes Heart disease Kidney disease Myocardial infarction Breast cancer Lung cancer Colorectal cancer Stroke Social History Smoking Status: Never smoker Tobacco Type: Cigarettes Age Started Using Tobacco: 17; Age Quit Using Tobacco: 18; Second Hand Exposure: No; Hx Alcohol Use: No Hx Substance Use: No Preferred Language: Yakut Communication Ability: Effective Hearing Ability: Normal Group Captain Required: No marital status: Single Current Living Situation: Significant Other current occupational status: employed current occupation: [employer] How many Children do You have: 0 Feels Safe at Home: Yes Childhood Exposure to Second-Hand Smoke: No Seatbelt Use: sometimes Sunscreen Use: Yes Review of Systems A total of 10 systems reviewed and were otherwise negative Physical Exam Vital Signs Vital Signs - 24 hr 06/03/21 08:24 06/03/21 09:02 06/03/21 09:06 Temperature 36.8 C Temperature Source Oral Pulse Rate 77 72 Pulse Rate [Finger] 74 Pulse Rate from SpO2 Sensor 71 Pulse Rhythm [Finger] Pulse Strength [Finger] Respiratory Rate 16 28 H 24 Respiratory Effort / Characteristics Respiratory Depth Blood Pressure 180/87 H Blood Pressure [Left Arm] 170/103 H Blood Pressure Mean 118 Blood Pressure Mean [Left Arm] 125 Blood Pressure Position [Left Arm] Pulse Oximetry 97 97 98 Oxygen Delivery Method Room Air Room Air Sepsis Recent Fever Within 48 Hours No Sepsis New/Unexplained Change in Mental Status No Sepsis Action Taken by Nursing No Action Required 06/03/21 09:10 06/03/21 09:20 06/03/21 09:31 Temperature Temperature Source Pulse Rate 71 66 76 Pulse Rate [Finger] Pulse Rate from SpO2 Sensor 69 68 70 Pulse Rhythm [Finger] Pulse Strength [Finger] Respiratory Rate 16 25 H 14 Respiratory Effort / Characteristics Respiratory Depth Blood Pressure Blood Pressure [Left Arm] Blood Pressure Mean Blood Pressure Mean [Left Arm] Blood Pressure Position [Left Arm] Pulse Oximetry 96 97 98 Oxygen Delivery Method Sepsis Recent Fever Within 48 Hours Sepsis New/Unexplained Change in Mental Status Sepsis Action Taken by Nursing 06/03/21 09:40 06/03/21 09:47 06/03/21 09:50 Temperature Temperature Source Pulse Rate 66 70 Pulse Rate [Finger] 76 Pulse Rate from SpO2 Sensor 67 69 Pulse Rhythm [Finger] Regular Pulse Strength [Finger] Normal Respiratory Rate 26 H 19 25 H Respiratory Effort / Characteristics Non-Labored Spontaneous Respiratory Depth Normal Blood Pressure Blood Pressure [Left Arm] 202/101 H Blood Pressure Mean Blood Pressure Mean [Left Arm] 134 Blood Pressure Position [Left Arm] Lying Pulse Oximetry 97 98 97 Oxygen Delivery Method Room Air Sepsis Recent Fever Within 48 Hours Sepsis New/Unexplained Change in Mental Status Sepsis Action Taken by Nursing 06/03/21 10:00 06/03/21 10:10 06/03/21 10:20 Temperature Temperature Source Pulse Rate 71 75 75 Pulse Rate [Finger] Pulse Rate from SpO2 Sensor 70 75 Pulse Rhythm [Finger] Pulse Strength [Finger] Respiratory Rate 23 22 25 H Respiratory Effort / Characteristics Respiratory Depth Blood Pressure Blood Pressure [Left Arm] Blood Pressure Mean Blood Pressure Mean [Left Arm] Blood Pressure Position [Left Arm] Pulse Oximetry 98 99 Oxygen Delivery Method Sepsis Recent Fever Within 48 Hours Sepsis New/Unexplained Change in Mental Status Sepsis Action Taken by Nursing 06/03/21 10:30 06/03/21 10:40 Temperature Temperature Source Pulse Rate 66 75 Pulse Rate [Finger] 71 Pulse Rate from SpO2 Sensor 65 74 Pulse Rhythm [Finger] Regular Pulse Strength [Finger] Normal Respiratory Rate 18 18 Respiratory Effort / Characteristics Non-Labored Spontaneous Respiratory Depth Normal Blood Pressure 185/99 H Blood Pressure [Left Arm] 185/99 H Blood Pressure Mean 127 Blood Pressure Mean [Left Arm] 127 Blood Pressure Position [Left Arm] Semi-fowlers Pulse Oximetry 99 98 Oxygen Delivery Method Room Air Sepsis Recent Fever Within 48 Hours Sepsis New/Unexplained Change in Mental Status Sepsis Action Taken by Nursing General: Well developed well nourished middle-age male who appears in no acute distress, breathing comfortably on room air. He is able to name objects but his speech is somewhat slurred compared to baseline. He is able to speak sentences as well but again it slurred. HEENT: Normal cephalic atraumatic. Pupils are equal round and reactive to light. Extraocular movements are intact. Oropharynx is pink with moist mucous membranes. No swelling of the mouth lips or tongue. She oropharynx is wide open there is no swelling seen. Neck: Supple with a midline trachea. No meningeal signs or stiffness, no JVD or bruits. No Stridor. I do not appreciate any swelling in the neck or goiter. Chest: Clear to auscultation bilaterally. No wheezes or rhonchi. No increased work of breathing. Heart: Regular rate and rhythm without murmurs or gallops. Abdomen: Soft nontender, nondistended without rebound guarding or rigidity. Extremities: No cyanosis clubbing or edema. No calf tenderness or assymetry Spine/Back. Non tender to palpation. No CVA tenderness Skin: Good turgor without rashes. Neurologic exam: Cranial nerves two through 12 are intact. Motor and sensation are intact and symmetrical throughout. No tremor. Finger-nose intact. Course Administered Medications Aspirin (Aspirin 325 Mg Ectab) 325 mg PO QAM KAILA Stop: 07/03/21 09:44 Last Admin: 06/03/21 10:14 Dose: 325 mg Documented by: [id number] Discontinued Medications Gadobutrol (Gadobutrol 65ml Vial) 10 ml IV ONCE ONE Stop: 06/03/21 12:54 Last Admin: 06/03/21 12:54 Dose: 10 ml Documented by: [id number] Sodium Chloride (Nss 1000ml) 1,000 mls @ 999 mls/hr IV .Q1H1M ONE Stop: 06/03/21 10:44 Last Infusion: 06/03/21 10:54 Dose: 0 mls/hr Documented by: [id number] Admin: 06/03/21 09:53 Dose: 999 mls/hr Documented by: [id number] Ioversol (Optiray 320 125ml) 118 ml IV ONCE ONE Stop: 06/03/21 08:53 Last Admin: 06/03/21 08:52 Dose: 118 ml Documented by: [id number] Medical Decision Making Differential Diagnosis Stroke, intracranial process/hemorrhage, toxic or metabolic, thyroid disease/thyroid storm, infection, Covid, electrolyte or metabolic abnormality no medications out of Medical Records Attestation: I reviewed the patient's medical records. Home Medications Current Medication List: was personally reviewed by me Laboratory Data Attestation: I reviewed the patient's lab results. Result diagrams: 06/03/21 08:35 06/03/21 08:35 Lab Results 06/03/21 06/03/21 06/03/21 Range/Units 08:32 08:35 08:35 WBC 8.88 (4.8-10.8) K/uL RBC 5.53 (4.7-6.1) M/uL Hgb 17.4 (14.0-18.0) g/dL POC Hgb (14.0-18.0) g/dl Hct 49.2 (42-52) % POC Hct (42-52) % MCV 89.0 (80-100) fL MCH 31.5 (25-34) pg MCHC 35.4 (32-36) g/dL RDW Std Deviation 41.4 (36.4-46.3) fL RDW Coeff of Doroteo 12.6 (11.5-14.5) % Plt Count 217 (130-400) K/uL MPV 10.5 H (7.4-10.4) fL PT 10.9 (9.0-12.0) Seconds INR 1.1 (0.9-1.1) APTT 24.8 (21.0-31.0) Seconds PTT Ratio 0.9 POC Sodium (135-144) mmol/L Sodium (136-145) mmol/L POC Potassium (3.3-5.0) mmol/L Potassium (3.5-5.1) mmol/L POC Chloride (101-112) mmol/L Chloride (98-107) mmol/L Carbon Dioxide (21-32) mmol/L POC Total CO2 (24-31) mmol/L Anion Gap (3-11) POC Anion Gap (16-25) mmol/L POC BUN (7-18) mg/dl BUN (7-18) mg/dl Creatinine (0.6-1.4) mg/dl POC Creatinine (0.6-1.3) mg/dl Est Cr Clr Drug Dosing ml/min Est GFR ( Amer) ml/min Est GFR (Non-Af Amer) ml/min BUN/Creatinine Ratio (10-20) Glucose (70-99) mg/dl POC Glucose 104 H (70-99) mg/dl POC Glucose (other) (70-99) mg/dl Calcium (8.5-10.1) mg/dl POC Ioniz Calcium Julianne (1.12-1.32) mmol/l Magnesium (1.8-2.4) mg/dl Total Bilirubin (0.2-1) mg/dl AST (15-37) U/L ALT (12-78) Alkaline Phosphatase (45-117) U/L Total Protein (6.4-8.2) gm/dl Albumin (3.4-5.0) gm/dl Globulin (2.5-4.0) gm/dl Albumin/Globulin Ratio (0.9-2) TSH (0.300-4.500) uIu/ml Free T4 (0.8-1.6) ng/dl SARS-CoV-2, RNA, NAAT (NEGATIVE) 06/03/21 06/03/21 06/03/21 Range/Units 08:35 08:38 09:05 WBC (4.8-10.8) K/uL RBC (4.7-6.1) M/uL Hgb (14.0-18.0) g/dL POC Hgb 17.0 (14.0-18.0) g/dl Hct (42-52) % POC Hct 50 (42-52) % MCV (80-100) fL MCH (25-34) pg MCHC (32-36) g/dL RDW Std Deviation (36.4-46.3) fL RDW Coeff of Doroteo (11.5-14.5) % Plt Count (130-400) K/uL MPV (7.4-10.4) fL PT (9.0-12.0) Seconds INR (0.9-1.1) APTT (21.0-31.0) Seconds PTT Ratio POC Sodium 143 (135-144) mmol/L Sodium 142 (136-145) mmol/L POC Potassium 3.6 (3.3-5.0) mmol/L Potassium 3.6 (3.5-5.1) mmol/L POC Chloride 105 (101-112) mmol/L Chloride 112 H (98-107) mmol/L Carbon Dioxide 25 (21-32) mmol/L POC Total CO2 24 (24-31) mmol/L Anion Gap 5.0 (3-11) POC Anion Gap 18.0 (16-25) mmol/L POC BUN 12 (7-18) mg/dl BUN 11 (7-18) mg/dl Creatinine 0.64 (0.6-1.4) mg/dl POC Creatinine 0.5 L (0.6-1.3) mg/dl Est Cr Clr Drug Dosing 168.0 ml/min Est GFR ( Amer) 135.1 ml/min Est GFR (Non-Af Amer) 116.6 ml/min BUN/Creatinine Ratio 17.9 (10-20) Glucose 110 H (70-99) mg/dl POC Glucose (70-99) mg/dl POC Glucose (other) 111 H (70-99) mg/dl Calcium 9.1 (8.5-10.1) mg/dl POC Ioniz Calcium Julianne 1.28 (1.12-1.32) mmol/l Magnesium 2.0 (1.8-2.4) mg/dl Total Bilirubin 0.7 (0.2-1) mg/dl AST 12 L (15-37) U/L ALT 25 (12-78) Alkaline Phosphatase 109 (45-117) U/L Total Protein 7.4 (6.4-8.2) gm/dl Albumin 3.0 L (3.4-5.0) gm/dl Globulin 4.4 H (2.5-4.0) gm/dl Albumin/Globulin Ratio 0.7 L (0.9-2) TSH < 0.005 L (0.300-4.500) uIu/ml Free T4 2.03 H (0.8-1.6) ng/dl SARS-CoV-2, RNA, NAAT NEGATIVE (NEGATIVE) Imaging Data Attestation: I personally reviewed and interpreted this imaging study as follows: My Impression: Head CTno acute hemorrhage or mass-effect seen Radiologist's Impression: Head CT 06/03/21 08:26 CT head/brain wo con CLINICAL HISTORY: Stroke Alert Technique: Contiguous axial CT images of the head were acquired from the base of the skull to the vertex without intravenous contrast administration. Images were viewed in brain, subdural and bone windows. Automated dose lowering techniques and/or adjustment according to patient size were utilized for this exam. Comparison: None available at the time of this dictation. Findings: The ventricles, basal cisterns, and cerebral sulci are normal. There is no acute intracranial hemorrhage or evidence of acute territorial infarction. Neither m ass effect, shift of the midline structures, nor abnormal extra-axial fluid collections are shown. Imaged portions of the paranasal sinuses and mastoid air cells are clear. The orbits appear normal. There are no acute fractures of the calvaria or scalp swelling. Impression: No acute intracranial hemorrhage, no evidence of acute territorial infarction or other acute intracranial disease process. ACT 112: Negative or not required by law. Electronically signed by: Noel Solis M.D. 06/03/2021 8:50 AM Head CTA 06/03/21 08:38 CT angio neck with con, CT angio head w con CLINICAL HISTORY: 46 years-old Male with Strokelike symptoms-difficulty ta lking. Acute strokelike symptoms COMPARISON STUDY: Head CT of same day TECHNIQUE: Following the IV administration of 118 mL of Optiray, CT angiogram of the head and neck was performed from the aortic arch to the skull apex. Images are reviewed in the axial, sagittal, and coronal planes. 3-D MIPS images are created and assessed. IV contrast was administered without complication. All measurements were calculated based on NASCET criteria. A dose lowering technique was utilized adhering to the principles of ALARA. CT DOSE: 1184.33 mGycm FINDINGS: Three-vessel morphology of the thoracic aortic arch. Patency of the innominate and imaged subclavian arteries. The common carotid arteries are widely patent. There is minimal atherosclerotic plaque of the proximal cervical segment of the left ICA. The middle and anterior cerebral arteries appear patent. The cerebral venous sinuses are patent. Codominant and widely patent vertebral arteries. The basilar and posterior cerebral arteries are patent. There is no aneurysm, dissection, high-grade stenosis or arterial occlusion identified. The lung apices are clear. There is no pneumothorax. Multinodular thyroid goiter. There is no prevertebral edema. Polypoid mucosal thickening of the maxillary sinuses bilaterally. Spondylitic spurring of the upper thoracic spine. Evaluation of the intracranial structures demonstrates chronic appearing lacunar infarcts of the basal ganglia with 2 cm area of encephalomalacia within the right paramedian patience. Age-indeterminate 5 mm lacunar infarct of the right thalamus. IMPRESSION: 1. Unremarkable CTA of the head and neck without aneurysm, dissection, high- grade stenosis or arterial occlusion. 2. Numerous chronic appearing lacunar infarcts of the basal ganglia with a 2 cm area of encephalomalacia within the right paramedian patience suggestive of a chronic infarct. 3. Age-indeterminate subcentimeter lacunar infarct of the right thalamus. 4. Multinodular thyroid goiter. 5. Mild polypoid mucosal thickening of the maxillary sinuses. ACT 112: Negative or not required by law. The above report was generated using voice recognition software. It may contain grammatical, syntax or spelling errors. Electronically signed by: Josiah Longoria M.D. 06/03/2021 9:16 AM Neck CTA 06/03/21 08:38 CT angio neck with con, CT angio head w con CLINICAL HISTORY: 46 years-old Male with Strokelike symptoms-difficulty talking. Acute strokelike symptoms COMPARISON STUDY: Head CT of same day TECHNIQUE: Following the IV administration of 118 mL of Optiray, CT angiogram of the head and neck was performed from the aortic arch to the skull apex. Images are reviewed in the axial, sagittal, and coronal planes. 3-D MIPS images are created and assessed. IV contrast was administered without complication. All measurements were calculated based on NASCET criteria. A dose lowering technique was utilized adhering to the principles of ALARA. CT DOSE: 1184.33 mGycm FINDINGS: Three-vessel morphology of the thoracic aortic arch. Patency of the innominate and imaged subclavian arteries. The common carotid arteries are widely patent. There is minimal atherosclerotic plaque of the proximal cervical segment of the left ICA. The middle and anterior cerebral arteries appear patent. The cerebral venous sinuses are patent. Codominant and widely patent vertebral arteries. The basilar and posterior cerebral arteries are patent. There is no aneurysm, dissection, high-grade stenosis or arterial occlusion identified. The lung apices are clear. There is no pneumothorax. Multinodular thyroid goiter. There is no prevertebral edema. Polypoid mucosal thickening of the maxillary sinuses bilaterally. Spondylitic spurring of the upper thoracic spine. Evaluation of the intracranial structures demonstrates chronic appearing lacunar infarcts of the basal ganglia with 2 cm area of encephalomalacia within the right paramedian patience. Age-indeterminate 5 mm lacunar infarct of the right thalamus. IMPRESSION: 1. Unremarkable CTA of the head and neck without aneurysm, dissection, high- grade stenosis or arterial occlusion. 2. Numerous chronic appearing lacunar infarcts of the basal ganglia with a 2 cm area of encephalomalacia within the right paramedian patience suggestive of a chronic infarct. 3. Age-indeterminate subcentimeter lacunar infarct of the right thalamus. 4. Multinodular thyroid goiter. 5. Mild polypoid mucosal thickening of the maxillary sinuses. ACT 112: Negative or not required by law. The above report was generated using voice recognition software. It may contain grammatical, syntax or spelling errors. Electronically signed by: Josiah Longoria M.D. 06/03/2021 9:16 AM ECG Data Attestation: I personally reviewed and interpreted this ECG as follows: Indication: + weakness Rate (beats per minute): 69 Rhythm: + normal sinus ECG Intervals/blocks: + Normal QRS, + Normal QT and + Normal MN ECG [place]: + Normal ECG ST segments: + Normal ST segments ECG Findings: no PACs or no PVCs Comparison ECG Date: from (10/24/2013) Change: the following changes noted (The rate has decreased.) MDM Narrative This patient comes in as described above he had slurred speech. He presented in triage. Amalia, the triage nurse called me and asked me to see him I went out immediately and saw him in room D8. He is able to name objects but definitely has slurred speech which is different compared to baseline according to his father. He has no other acute deficits. He does walk with a limp as he has a frozen hip but there is no change in that. He does a history of hyperthyroidism as well as severe colitis but denies any he is on a medication for this. He is on no blood thinners he is on blood pressure medications. Besides the slurred speech she looks well there is no obvious swelling oropharynx. I do not appreciate a goiter. He is well outside the window for TPA or any acute neurologic interventional process as this is been over 5 days. I did order his significant stroke work-up on him. I ordered i-STAT labs. He has a normal hemoglobin electrolytes as well as blood sugar. I did order a CTA of the head and neck as well as a CAT scan of the head. I also asked them to comment on any soft tissue abnormalities in the neck given his history of thyroid disease. CAT scan of his head does not show acute hemorrhage. CT of the head neck do show some old infarcts and an age-indeterminate lacunar infarct in the right thalamus. This certainly could be explaining his symptoms. He does have a goiter. He has no vascular abnormalities. He has no fever or white count to suggest infection. No significant Gabriella appears no acute electrolyte or metabolic abnormality. EKG does not suggest acute ischemia. His TSH is significantly low consistent with hypothyroid. Clinically he does not appear to be in a thyroid storm is nontachycardic he is moderately hypertensive but is otherwise asymptomatic besides a slurred speech. He was given aspirin 324 milligrams chewable. He was given IV fluid bolus. I do think he needs to be admitted/observe for further neurologic work-up and also to be started back on medication for his thyroid. I did consult the [facility] hospitalist to see him in ER for these measures. Continuous cardiac monitoring: Order was placed in EMR for continuous cardiac monitoring. Upon my interpretation, the patient was noted to be in normal sinus rhythm with a rate of 75 Impression & Plan CVA (cerebral vascular accident), Hyperthyroidism, Speech abnormality, Lab test negative for COVID-19 virus Discharge Plan Visit Data Chief Complaint: Stroke/CVA Symptoms Stated Complaint: CANNOT TALK/WEAK ED Provider: Miguel Santamaria Discharge Problem: CVA (cerebral vascular accident), Hyperthyroidism, Speech abnormality, Lab test negative for COVID-19 virus Patient Disposition: Admitted As Inpatient Discharge Instructions Interventions: ED Discharge Assessment Last Done: 06/03/21 12:29 Discharge Problem: CVA (cerebral vascular accident) Qualifiers: CVA mechanism: unspecified Qualified Code(s): I63.9 - Cerebral infarction, unspecified Speech abnormality Qualifiers: Speech disturbance type: unspecified speech disturbance Qualified Code(s): R47.9 - Unspecified speech disturbances
[2021-06-03 08:50] LABS: Hematocrit (blood only) 49.2 % (42-52); Hemoglobin 17.4 g/dL (14.0-18.0); Mean Corpuscular Hemoglobin 31.5 pg (25-34); Mean Corpuscular Hgb Conc 35.4 g/dL (32-36); Mean Platelet Volume 10.5 fL (7.4-10.4); Platelet Count 217 K/uL (130-400); RDW Coefficient of Variation 12.6 % (11.5-14.5); RDW Standard Deviation 41.4 fL (36.4-46.3); Red Blood Count 5.53 M/uL (4.7-6.1); White Blood Count 8.88 K/uL (4.8-10.8)
[2021-06-03 08:50] LABS: iSTAT Creatinine 0.5 mg/dl (0.6-1.3); iSTAT Ionized Calcium 1.28 mmol/l (1.12-1.32); iSTAT Potassium 3.6 mmol/L (3.3-5.0)
--- NOTE | 2021-06-03 08:51 | CT Scan Report ---
CT head/brain wo con CLINICAL HISTORY: Stroke Alert Technique: Contiguous axial CT images of the head were acquired from the base of the skull to the joyce jdae without intravenous contrast administration. Images were viewed in brain, subdural and bone [facility]. Automated dose lowering techniques and/or adjustment according to patient size were utilized for this exam. Comparison: None available at the time of this dictation. Findings: The ventricles, basal cisterns, and cerebral sulci are normal. There is no acute intracranial hemorrh age or evidence of acute territorial infarction. Neither mass effect, shift of the midline structures , nor abnormal extra-axial fluid collections are shown. Imaged portions of the paranasal sinuses and mastoid air cells are clear. The orbits appear normal. There are no acute fractures of the calvaria or scalp swelling. Impression: No acute intracranial hemorrhage, no evidence of acute territorial infarction or other acute intracra nial disease process. ACT 112: Negative or not required by law. Electronically signed by: Noel Solis M.D. 06/03/2021 8:50 AM
[2021-06-03] MEDS ORDERED: OPTIRAY 320 125ml IV ONE (08:52)
[2021-06-03 09:07] LABS: Alanine Aminotransferase 25 (12-78); Aspartate Aminotransferase 12 U/L (15-37); BUN Creatinine Ratio 17.9 (10-20); Blood Urea Nitrogen 11 mg/dl (7-18); Calcium 9.1 mg/dl (8.5-10.1); Carbon Dioxide 25 mmol/L (21-32); Chloride 112 mmol/L (98-107); Est GFR (African American) 135.1 ml/min; Est GFR (Non-African American) 116.6 ml/min; Glucose 110 mg/dl (70-99); Potassium 3.6 mmol/L (3.5-5.1); Sodium 142 mmol/L (136-145)
[2021-06-03 09:13] LABS: INR 1.1 (0.9-1.1); Partial Thromboplastin Ratio 0.9; Partial Thromboplastin Time 24.8 Seconds (21.0-31.0); Prothrombin Time 10.9 Seconds (9.0-12.0)
--- NOTE | 2021-06-03 09:17 | CT Scan Report ---
CT angio neck with con, CT angio head w con CLINICAL HISTORY: 46 years-old Male with Strokelike symptoms-difficulty talking. Acute strokelike symptoms COMPARISON STUDY: Head CT of same day TECHNIQUE: Following the IV administration of 118 mL of Optiray, CT angiogram of the head and neck wa s performed from the aortic arch to the skull apex. Images are reviewed in the axial, sagittal, and c oronal planes. 3-D MIPS images are created and assessed. IV contrast was administered without complic ation. All measurements were calculated based on NASCET criteria. A dose lowering technique was util ized adhering to the principles of ALARA. CT DOSE: 1184.33 mGycm FINDINGS: Three-vessel morphology of the thoracic aortic arch. Patency of the innominate and imaged subclavian arteries. The common carotid arteries are widely patent. There is minimal atherosclerotic plaque of t he proximal cervical segment of the left ICA. The middle and anterior cerebral arteries appear patent . The cerebral venous sinuses are patent. Codominant and widely patent vertebral arteries. The basila r and posterior cerebral arteries are patent. There is no aneurysm, dissection, high-grade stenosis o r arterial occlusion identified. The lung apices are clear. There is no pneumothorax. Multinodular thyroid goiter. There is no prevert ebral edema. Polypoid mucosal thickening of the maxillary sinuses bilaterally. Spondylitic spurring o f the upper thoracic spine. Evaluation of the intracranial structures demonstrates chronic appearing lacunar infarcts of the basal ganglia with 2 cm area of encephalomalacia within the right paramedian patience. Age-indeterminate 5 mm lacunar infarct of the right thalamus. IMPRESSION: 1. Unremarkable CTA of the head and neck without aneurysm, dissection, high-grade stenosis or arteria l occlusion. 2. Numerous chronic appearing lacunar infarcts of the basal ganglia with a 2 cm area of encephalomala alessandro within the right paramedian patience suggestive of a chronic infarct. 3. Age-indeterminate subcentimeter lacunar infarct of the right thalamus. 4. Multinodular thyroid goiter. 5. Mild polypoid mucosal thickening of the maxillary sinuses. ACT 112: Negative or not required by law. The above report was generated using voice recognition software. It may contain grammatical, syntax o r spelling errors. Electronically signed by: Josiah Longoria M.D. 06/03/2021 9:16 AM
[2021-06-03 09:18] LABS: Albumin Globulin Ratio 0.7 (0.9-2); Alkaline Phosphatase 109 U/L (45-117); Bilirubin,Total 0.7 mg/dl (0.2-1); Globulin 4.4 gm/dl (2.5-4.0); Thyroid Stimulating Hormone < 0.005 uIu/ml (0.300-4.500); Total Protein 7.4 gm/dl (6.4-8.2)
[2021-06-03 09:36] LABS: T4 Free Thyroxine 2.03 ng/dl (0.8-1.6)
[2021-06-03] MEDS ORDERED: SODIUM CHLORIDE 0.9% 1000ML 1,000 ML IV ONE (09:44)
[2021-06-03] MEDS: ASPIRIN 325 MG ECTAB PO SCH (10:14)
--- NOTE | 2021-06-03 10:29 | History & Physical Report ---
Date of Service June 03, 2021 Assessment & Plan (1) CVA (cerebral vascular accident): Plan: Patient will be admitted to the hospital proceeding as follows: I explained to the patient and his father that he is outside of the window for TPA administration We will continue antiplatelet therapy in the form of aspirin We will check an MRI of the brain with and without contrast We will check an echocardiogram to evaluate for possible embolic source of stroke We will check a lipid profile We will check a hemoglobin A1c For the present time we will allow some permissive hypertension as we do not want underperfused patients brain at the present time. We will continue his metoprolol but hold his other antihypertensive medications. I did discuss with the patient that long-term we would like to see some improved control of his blood pressure however We will list to help with physical, occupational, and speech therapy We will request a neurology consultation The patient was previously taking methimazole for hyperthyroidism. 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 We are currently attempting to ascertain from his endocrinology office what if any dose he is supposed to be taking to ensure that this is not contributing to his current presentation. We will utilize Lovenox for DVT prevention I discussed CODE STATUS with this patient in the event of cardiopulmonary arrest he wishes to be a level one full code History of Present Illness Chief Complaint: Dysarthria Primary Care Provider: Brooks López MD This is a 46-year-old male who presented to [facility] emergency department secondary to dysarthria that began approximately 4 days ago. Patient says a day prior to his symptoms he felt fine in his usual state of health without any noted deficits. He noted 4 days ago he woke up in the morning and shortly after taking a shower he noted difficulty talking. He specifically denies any visual changes. He denies any weakness of his arms or legs. He denies any dysphagia. Patient did not seek medical attention as he merely thought his symptoms would improve but since they have been ongoing he sought medical attention today in the emergency department. He denies any recent falls or head injuries. He denies any illicit drug use other than occasional marijuana use and he says that he has smoked this medication as recently as yesterday. He denies any insect or tick bites recently. Patient does report similar symptoms in October of this year that were not as severe. He said he was seen in the [facility] emergency department but did not require hospitalization. He notes that the symptoms resolved. Patient says he occasionally smokes cigarettes while he was in high school but has not smoked since. He says he is not a known diabetic. He notes that he was previously taking aspirin but this was stopped for reasons unclear to him. In the emergency department patient had labs and imaging which independent reviewed. CBC revealed white blood cell count, hemoglobin, hematocrit, and platelet count are all within normal range. Coagulation studies were all noted to be normal. Chemistry profile showed sodium, potassium, BUN, and creatinine were all within normal range. Patient did have a normal magnesium level. There is no significant elevation of his LFTs. Patient did have a TSH that was noted to be low at less than 0.005. His free T4 level was noted to be high at 2.0. A Covid test was performed and was noted to be negative. An EKG showed normal sinus rhythm without changes indicative of acute ischemia. The patient did have a CT scan and a CT angiogram of his head and neck. The CT scan angiogram of his neck did not show any evidence of aneurysm, dissection, or high-grade stenosis. There is also no arterial occlusion. There are no arterial occlusions noted on the CT angiogram portion of his head. There are numerous chronic appearing lacunar infarcts in the basal ganglia, the right paramedian patience, and the right thalamus. The treating emergency room physician has administered antiplatelet therapy in the form of aspirin. At the time my interview the patient was resting comfortably in bed in no distress Allergies Allergy/AdvReac Type Severity Reaction Status Date / Time lisinopril Allergy Verified 06/03/21 09:38 Home Medications Medication Instructions Recorded Confirmed Type metoprolol succinate 100 mg 100 mg PO BID #180 tab 02/23/21 06/03/21 Rx tablet,extended release 24 hr amlodipine 5 mg-olmesartan 20 mg 1 tab PO QAM 06/03/21 06/03/21 History tablet cholecalciferol (vitamin D3) 125 125 mcg PO QAM 06/03/21 06/03/21 History mcg (5,000 unit) capsule vitamin E acetate 134 mg (200 0 mg PO QAM 06/03/21 06/03/21 History unit) capsule Past Med/Surg History Medical History Multinodular goiter Tachycardia Surgical History History of bowel resection History of hernia repair History of hip surgery Family History Father Asthma Hypertension Denies family history of Ovarian cancer Prostate cancer Diabetes Heart disease Kidney disease Myocardial infarction Breast cancer Lung cancer Colorectal cancer Stroke Social History Smoking Status: Former smoker Tobacco Type: Cigarettes Age Started Using Tobacco: 17; Age Quit Using Tobacco: 18; Second Hand Exposure: No; Do You Dip or Chew Tobacco: No; Tobacco Cessation Education Requested by Patient: No Hx Alcohol Use: No Hx Substance Use: No Preferred Language: Azerbaijani Communication Ability: Effective Hearing Ability: Normal Assistant Therapy Aide Required: No Beliefs That Will Affect Care: None marital status: Single Current Living Situation: Significant Other current occupational status: employed current occupation: [employer] How many Children do You have: 0 Other Information That Helps Us Care for You: No Feels Safe at Home: Yes Safety Concerns: Feels Safe At This Time Childhood Exposure to Second-Hand Smoke: No Seatbelt Use: sometimes Sunscreen Use: Yes Assistive Devices: None Review of Systems Constitutional: no fever, no chills and no weakness Eyes: no blind spots and no diplopia Ear, Nose, Mouth, Throat: no ear pain and no tinnitus Respiratory: no cough and no dyspnea Cardiovascular: no chest pain Gastrointestinal: no abdominal pain, no nausea and no vomiting Genitourinary: no dysuria Musculoskeletal: no back pain Integumentary: no rash Neurologic: + abnormal speech; no localized weakness, no tremor(s) and no headache(s) Physical Exam Constitutional: well developed and well nourished; no acute distress Eyes: PERRL, conjunctivae normal, anicteric sclerae ENMT: Ears: no hearing impairment and no external ear abnormality Mouth: no oropharynx abnormality Neck: trachea midline Respiratory: normal respiratory effort, lungs clear to auscultation Cardiovascular: Rate/Rhythm: regular rate and regular rhythm Gastrointestinal (Abdomen): normal bowel sounds, soft, nontender, no hepatosplenomegaly Musculoskeletal: No calf tenderness Skin: no rashes Neurologic: Patient was able to move all four extremities with equal strength and no noted weakness in any of his extremities. His cranial nerves II through XII are grossly intact with the exception of a left facial droop. Psychiatric: A+Ox3, euthymic affect Results & Data Results & Data ([facility]) Vital Signs (Past 12 Hours) Vital Signs Temp Pulse Pulse Resp BP BP Pulse Ox 06/03/21 09:47 76 19 202/101 H 98 06/03/21 09:06 74 24 170/103 H 98 06/03/21 08:24 36.8 C 77 16 180/87 H 97 Supervising Physician Co-Signing Physician Notes I personally saw and examined the patient. I verified all dupont points and agree with Arnav Gonzalez PA-C with the following exceptions and/or additions: 46 year old male presents to the ER with 4 day history of slurred speech. Patient seen on the farris after admission and he reports it is already improving. Overt aspirations noted by SLT - now on minced and moist diet. O/E Mild dysarthria noted, no expressive or receptive dysphasia. Chest CTAB, HS1+2, no murmurs, RRR. Abdo SNT. No focal neurology other than speech, no diplopia, PERRL, no facial droop, no pronator drift. A/P CVA - confirmed on MRI, TTE, lipid panel and HbA1C with AM labs, consult neurology. SLT. PT/OT PG Care Time/CCT Total # of Minutes Spent Total Time Spent with Patient: Total time spent is greater than 50% in coordination of care (as documented) at patient's floor/unit and/or counseling patient: Coding Level of Care Code 03702 Initial Inpt Care Lvl 3 Diagnoses CVA (cerebral vascular accident) I63.9
[2021-06-03] MEDS ORDERED: GADOBUTROL 65ML VIAL IV ONE (12:53)
--- NOTE | 2021-06-03 13:19 | Magnetic Resonance Report ---
MR brain wo/w con HISTORY: 46 years-old Male cva acute strokelike symptoms COMPARISON: CT head, CTA head and neck 06/03/2021 TECHNIQUE: Multiplanar multisequence MRI the brain was obtained both with and without the use of Gada vist FINDINGS: 1.3 x 1.0 x 0.8 cm area of restricted diffusion involves the left aspect of the mid patience on image 8 s eries 4 with decreased ADC signal. There is encephalomalacia from chronic right pontine infarct. No a cute territorial infarct. There is no pathologic blooming artifact. No acute intracranial hemorrhage, midline shift, abnormal extra-axial collection, hydrocephalus or intracranial mass identified. Chron ic lacunar infarcts of the basal ganglia and thalami with mild associated encephalomalacia and gliosi s. There is mild wallerian degeneration of the thalami. There is no abnormal intra-axial or extra-axi al enhancement identified. The cerebral venous sinuses and major arterial flow voids appear patent. The mastoid air cells are cl ear. Mild mucosal thickening of the ethmoid air cells with polypoid mucosal thickening of the maxilla ry sinuses measuring up to 2.67 m on the right. The skull, orbits and soft tissues are unremarkable. IMPRESSION: 1. 1.3 cm acute infarct of the left paramedian patience. 2. Chronic right pontine infarct with numerous chronic lacunar infarcts of the basal ganglia. 3. No acute intracranial hemorrhage, midline shift or abnormal enhancement. ACT 112: Negative or not required by law. The above report was generated using voice recognition software. It may contain grammatical, syntax o r spelling errors. Electronically signed by: Josiah Longoria M.D. 06/03/2021 1:18 PM
--- NOTE | 2021-06-03 13:47 | XCELERA ---
[id number]
[2021-06-03] MEDS ORDERED: PHARMACIST DISCHARGE MED REC CONSULT PRN (13:55)
[2021-06-03 16:48] LABS: Appearance Urine Clear (Clear); Bacteria Urine Automated Negative (Negative); Bilirubin Urine Negative (Negative); Blood Urine Negative (Negative); Color Urine Yellow; Epithelial Cell Urine Auto 20-30 /lpf (0-5); Glucose Urine UA Negative (Negative); Ketones Urine Negative (Negative); Leukocyte Esterase Urine Negative (Negative); Nitrite Urine Negative (Negative); Protein Urine 1+ (Negative); RBC Urine Automated 0-4 /hpf (0-4); Specific Gravity Urine > 1.045 (1.000-1.030); Urobilinogen Urine Negative (Negative)
[2021-06-03] MEDS: methIMAzole 5 MG TABLET PO SCH (18:19)
[2021-06-03] MEDS ORDERED: methIMAzole 5 MG TABLET PO SCH (21:00)
[2021-06-03] MEDS: METOPROLOL SUCC 50MG EXT REL TAB PO SCH (21:05)
[2021-06-03] MEDS: ATORVASTATIN 40 MG TAB PO SCH (22:36)
--- NOTE | 2021-06-04 06:15 | Electrocardiogram Report ---
Test Reason : Blood Pressure : / mmHG Vent. Rate : 069 BPM Atrial Rate : 069 BPM P-R Int : 158 ms QRS Dur : 090 ms QT Int : 418 ms P-R-T Axes : 019 -39 019 degrees QTc Int : 447 ms Poor data quality, interpretation may be adversely affected Normal sinus rhythm Possible Left atrial enlargement Left axis deviation Abnormal ECG When compared with ECG of 24-OCT-2013 11:06, Vent. rate has decreased BY 45 BPM Confirmed by Madhu Mead ([id number]) on 06/04/2021 6:15:20 AM Referred By: REFERRED SELF Confirmed By:Madhu Mead
[2021-06-04 08:35] LABS: Basophils # (auto) 0.02 K/uL (0-0.2); Basophils % (auto) 0.2 %; Eosinophils # (auto) 0.16 K/uL (0-0.5); Eosinophils % (auto) 1.8 %; Hematocrit (blood only) 49.6 % (42-52); Hemoglobin 17.8 g/dL (14.0-18.0); Immature Granulocytes # (auto) 0.03 K/uL (0.00-0.02); Immature Granulocytes % (auto) 0.3 %; Lymphocytes # (auto) 1.47 K/uL (1.2-3.4); Lymphocytes % (auto) 16.6 %; Mean Corpuscular Hemoglobin 31.5 pg (25-34); Mean Corpuscular Hgb Conc 35.9 g/dL (32-36); Mean Corpuscular Volume 87.8 fL (80-100); Mean Platelet Volume 10.7 fL (7.4-10.4); Monocytes # (auto) 0.82 K/uL (0.11-0.59); Monocytes % (auto) 9.3 %; Neutrophils # (auto) 6.36 K/uL (1.4-6.5); Neutrophils % (auto) 71.8 %; Platelet Count 192 K/uL (130-400); RDW Coefficient of Variation 12.4 % (11.5-14.5); RDW Standard Deviation 39.5 fL (36.4-46.3); Red Blood Count 5.65 M/uL (4.7-6.1); White Blood Count 8.86 K/uL (4.8-10.8)
[2021-06-04] MEDS ORDERED: ATORVASTATIN 40 MG TAB PO SCH (09:00)
[2021-06-04 09:04] LABS: Estimated Average Glucose 97 mg/dl
[2021-06-04 09:11] LABS: BUN Creatinine Ratio 29.6 (10-20); Calcium 8.8 mg/dl (8.5-10.1); Creatinine Clr Calc Pharmacy 206.8 ml/min; Est GFR (African American) 147.2 ml/min; Potassium 3.7 mmol/L (3.5-5.1)
[2021-06-04] MEDS: ENOXAPARIN INJ 40 MG/0.4 ML SYR SQ SCH (09:15)
[2021-06-04] MEDS: ASPIRIN 325 MG ECTAB PO SCH (09:16)
[2021-06-04] MEDS: methIMAzole 5 MG TABLET PO SCH ×2 (09:17→21:14)
[2021-06-04] MEDS: METOPROLOL SUCC 50MG EXT REL TAB PO SCH ×2 (09:17→21:15)
[2021-06-04] MEDS: CHOLECALCIFEROL 5,000 UNITS 125 MCG TAB PO SCH (09:18)
--- NOTE | 2021-06-04 09:40 | Neurology Consultation ---
Date of Consultation June 04, 2021 Assessment & Plan (1) Left pontine stroke: (2) H/O: stroke: Acute left pontine stroke presenting with dysarthria without significant associated right hemiparesis. Patient does have a left lower facial droop as well as left lower extremity hyperreflexia, clonus, and Babinski that are likely related to the chronic right paramedian pontine infarct. 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 He does not appear to have significant weakness for either upper limb. Although hypertension may be a stroke risk factor for this patient, he also has a history of Graves' disease which may increase his risk for atrial fibrillation. As his imaging suggests multiple previous/chronic strokes in different vascular territories cardioembolic stroke is certainly possible if not likely in this patient. It is notable that his CT angiography is unremarkable, his lipids are generally low although he has a low HDL as well. Ulcerative colitis is also a likely stroke risk. Would recommend daily low-dose aspirin, 81 mg/day for secondary stroke risk reduction. However, anticoagulation may be a better option given the likelihood of atrial fibrillation in this patient. He will need 30-day mobile cardiac outpatient telemetry. Would also recommend a hypercoagulable panel. 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 Last GI note from December 2019 suggested a normal colonoscopy. He will also need additional follow-up with endocrinology. History of Present Illness Reason for Consultation: stroke Requesting Physician: Yann Gonzalez PA-C Attending Physician: Rcik Ernandez MD History of Present Illness The patient is a 46-year-old male with a chief complaint of slurred speech that began Monday evening, 5 days prior to his presentation to the emergency department yesterday. He indicates that this particular symptom has been persistent but is perhaps slightly improved. He denies experiencing any associated double vision, vertigo, or focal weakness of the arms or legs. He does have a history of a fused left hip which affects the strength and mobility of his left lower limb and gait. Past medical history also notable for ulcerative colitis, colon cancer, and multinodular goiter and hyperthyroidism. He follows with [facility] endocrinology. He was seen at the [facility] emergency department for dizziness/lightheadedness on October 23, 2020 that was felt to be related to hypertension and/or dehydration. He takes antihypertensive medication as an outpatient but is otherwise not on blood thinners or a statin. He has not taking any medication for his ulcerative colitis currently. Allergies Allergy/AdvReac Type Severity Reaction Status Date / Time lisinopril Allergy Verified 06/03/21 09:38 Home Medications Medication Instructions Recorded Confirmed Type metoprolol succinate 100 mg 100 mg PO BID #180 tab 02/23/21 06/03/21 Rx tablet,extended release 24 hr amlodipine 5 mg-olmesartan 20 mg 1 tab PO QAM 06/03/21 06/03/21 History tablet cholecalciferol (vitamin D3) 125 125 mcg PO QAM 06/03/21 06/03/21 History mcg (5,000 unit) capsule vitamin E acetate 134 mg (200 0 mg PO QAM 06/03/21 06/03/21 History unit) capsule Patient History Medical History Multinodular goiter Tachycardia Surgical History History of bowel resection History of hernia repair History of hip surgery Family History Father Asthma Hypertension Denies family history of Ovarian cancer Prostate cancer Diabetes Heart disease Kidney disease Myocardial infarction Breast cancer Lung cancer Colorectal cancer Stroke Social History Smoking Status: Former smoker Tobacco Type: Cigarettes Age Started Using Tobacco: 17; Age Quit Using Tobacco: 18; Second Hand Exposure: No; Do You Dip or Chew Tobacco: No; Tobacco Cessation Education Requested by Patient: No Hx Alcohol Use: No Hx Substance Use: No Preferred Language: Telugu Communication Ability: Effective Hearing Ability: Normal Tray Line Worker Required: No Beliefs That Will Affect Care: None marital status: Single Current Living Situation: Significant Other current occupational status: employed current occupation: [employer] How many Children do You have: 0 Other Information That Helps Us Care for You: No Feels Safe at Home: Yes Safety Concerns: Feels Safe At This Time Childhood Exposure to Second-Hand Smoke: No Seatbelt Use: sometimes Sunscreen Use: Yes Review of Systems Constitutional: no fever and no chills Eyes: no blind spots and no diplopia Ear, Nose, Mouth, Throat: no ear pain and no hearing loss Respiratory: no cough and no dyspnea Cardiovascular: no chest pain and no palpitations Gastrointestinal: no constipation and no diarrhea/loose stools Genitourinary: no urinary incontinence or no urinary urgency Musculoskeletal: no muscle weakness and no muscle atrophy Integumentary: no rash and no lesions Neurologic: as per Subjective / HPI, + gait abnormality and + abnormal speech; no tremor(s), no syncope, no headache(s) and no memory loss Psychiatric: no behavioral changes, no depression, no abnormal sleep pattern and no anxiety Hematologic / Lymphatic: no easy bruising and no lymphadenopathy Exam (Neuro) Constitutional: well developed and well nourished; no acute distress Eyes: normal visual becerra by confrontation, PERRL, normal accommodation and EOM intact bilaterally; no fundoscopic abnormality, no nystagmus and no papilledema Cardiovascular: Vessels: normal carotid upstroke; no carotid bruit Neurologic: Oriented to:: Person, Place and Time Memory: Short Term Intact and Remote Intact Attention: Span Intact and Concentration Intact Language: Naming Objects and Repeating Phrases Speech Fluency: Dysarthria Speech Aphasia: negative Aphasia Fund of Knowledge: Current Events, Past History and Vocabulary Cranial Nerves: Normal II (Visual becerra full to confrontation, visual acuity normal), III, IV, (Pupils equal round reactive to light and accommodation, eye movements normal), V (Facial sensation intact), VIII (Hearing intact), IX, X (Palate elevates to midline), XI (Shoulder shrug intact) and XII (Tongue protrudes to midline); Abnorm VII (There is weakness of the left lower facial musculature.) Motor Strength: Normal Lower Extremities and Normal Upper Extremities; negative Pronator Drift Motor Tone: Normal Lower Extremities and Normal Upper Extremities Muscle Bulk/Involuntary Movements: No Involuntary Movements; negative Muscle Atrophy Sensation: Light Touch Intact, Pain/Temperature Intact, Vibration Intact and Proprioception Intact Coordination: Normal, Limited Balance and Heel-Plascencia Abnormal Laterality: Right and Left; negative Dysdiadochokinesia or Finger-Nose Abnormal Deep Tendon Reflexes: Rt Triceps: 2+, Lt Triceps: 2+, Rt Biceps: 2+, Lt Biceps : 2+, Rt Brachioradialis: 2+, Lt Brachioradialis: 2+, Rt Patellar: 2+, Lt Patellar: 3+, Rt Ankle: 2+ and Lt Ankle: 3+ Special Tests: Babinski Present (L>R) and Ankle Clonus (Beats) (left) Gait: Limping Results & Data ([facility]) Vital Signs (Past 12 Hours) Vital Signs Temp Pulse Pulse Resp BP BP Pulse Ox 06/04/21 07:28 64 06/04/21 07:13 36.9 C 70 20 164/83 H 97 06/04/21 04:08 63 06/04/21 04:00 36.6 C 70 18 146/76 H 96 06/03/21 23:00 36.6 C 70 18 128/53 L 98 Laboratory Results WBC 8.86, hemoglobin 17.8, hematocrit 49.6, platelet count 192, sodium 141, potassium 3.7, BUN 16, creatinine 0.52, glucose 101, hemoglobin A1c 5.0, calcium 8.8, magnesium 2.0, AST 12, ALT 25, triglycerides 67, cholesterol 85, LDL 41, HDL 31, TSH less than 0.005, free T4 2.[address] of the head negative for hemorrhage or acute process. There is a chronic right paramedian pontine infarct. There are bilateral subcortical chronic lacunar infarcts. CT angiography of the head and neck normal. Brain MRI reveals a 1.3 cm acute infarct within the left paramedian patience. The chronic right pontine infarct as well as numerous bilateral hemispheric subcortical lacunar infarcts are again seen. I reviewed the images as well as the radiologist's interpretation of these tests. An electrocardiogram reveals a normal sinus rhythm, 69 bpm. An echocardiogram reveals a normal left ventricular size and systolic function, ejection fraction 60 to 65%, no regional wall motion abnormalities. There is mild concentric left ventricular hypertrophy, mild left atrial dilatation, no ASD or PFO. Coding Level of Care Code 45683 Initial Inpt Care Lvl 3 Diagnoses Left pontine stroke I63.9 H/O: stroke Z86.73
--- NOTE | 2021-06-04 13:33 | Hospitalist Progress Note ---
Date of Service June 04, 2021 Assessment & Plan (1) CVA (cerebral vascular accident): Plan: MRI showed evidence of acute left pontine infarct and also chronic pontine infarct Still some dysarthria Given multiple strokes, patient may have yet to be diagnosed predisposition to thrombosis ECHO did not show any evidence of PFO will order hypercoagulation work up Will consider po eliquis outpatient cardionet appreciate neurology recs continue physical and speech therapy (2) Benign essential hypertension: Plan: BP 153/89 permissive HTN in the next 24 hrs (3) Graves disease: Plan: patient recently had a change in his dose of methimazole will continue 20mg BID outpatient f/u with endocrinology Plan: discharge to rehab when accepted Admission and Anticipated Discharge Date Admission Date: June 03, 2021 Subjective patient seen and examined, still some dysarthria and improved limb weakness Review of Systems Review of Systems: All systems reviewed are negative, apart from the ones contained in the history. Physical Exam Physical Exam: The patient is awake, alert and oriented 3, well developed and well nourished, normocephalic and atraumatic, lying in bed and in no acute distress. HEENT--PERRL, EOMI, mucous membranes and oropharynx mildly dry Neck--supple. No JVD. No bruits. Thyroid normal, trachea midline, no adenopathy. Heart--normal S1 and S2. No murmurs, rubs or gallops. Lungs--clear bilaterally, no respiratory distress, no accessory muscle use. Abdomen--normal bowel sounds and soft. Mild epigastric and left sided abdominal pain Extremities--no cyanosis or clubbing. No edema. Dermatologic--normal skin turgor, normal color, no abnormal lymph nodes, no rash. Neurologic--dysarhtric, some extremity weakness Rheumatologic--normal range of motion. Psychiatric--normal affect. Results & Data Results & [facility] ([facility]) Vital Signs (Past 12 Hours) Vital Signs Temp Pulse Pulse Resp BP BP Pulse Ox 06/04/21 11:25 97.7 F 70 20 153/89 H 97 06/04/21 07:28 64 06/04/21 07:13 98.4 F 70 20 164/83 H 97 06/04/21 04:08 63 06/04/21 04:00 97.9 F 70 18 146/76 H 96 PG Care Time/CCT Total # of Minutes Spent Total Time Spent with Patient: Total time spent is greater than 50% in coordination of care (as documented) at patient's floor/unit and/or counseling patient: Coding Level of Care Code 57888 Subseq Hosp Care Lvl 2 Diagnoses CVA (cerebral vascular accident) I63.9 CVA mechanism: unspecified Benign essential hypertension I10 Graves disease E05.00 (1) CVA (cerebral vascular accident) CVA mechanism: unspecified Qualified Code(s): I63.9 - Cerebral infarction, unspecified
--- NOTE | 2021-06-04 15:13 | Fluoroscopy Report ---
FL video swallow HISTORY: Brainstem stroke. Evidence for aspiration. TECHNIQUE: Video fluoroscopic evaluation of swallowing was performed in the AP and lateral projection s by the speech pathology staff. The patient is fed nectar-thick and thin liquid barium, a barium coa arthur wafer, and barium pudding. FLUOROSCOPY TIME: 1.6 minutes. A cine loop submitted.. COMPARISON STUDY: None. FINDINGS: There is normal hyoid excursion and epiglottic deflection. Slight delayed initiation of swa llowing. This resulted in a small amount of aspiration with the thin liquid barium only. No aspiratio n identified with the remaining barium consistencies. IMPRESSION: 1. A small amount of silent aspiration identified with the thin liquid barium only. 2. Please see the speech pathologist report for detailed findings and recommendations. ACT 112: Negative or not required by law. Electronically signed by: Flash Cartagena M.D. 06/04/2021 3:11 PM
[2021-06-04] MEDS: ATORVASTATIN 40 MG TAB PO SCH (21:16)
[2021-06-05 06:21] LABS: Basophils # (auto) 0.02 K/uL (0-0.2); Basophils % (auto) 0.3 %; Eosinophils # (auto) 0.16 K/uL (0-0.5); Eosinophils % (auto) 2.2 %; Hemoglobin 17.2 g/dL (14.0-18.0); Immature Granulocytes # (auto) 0.01 K/uL (0.00-0.02); Immature Granulocytes % (auto) 0.1 %; Lymphocytes # (auto) 1.35 K/uL (1.2-3.4); Lymphocytes % (auto) 18.5 %; Mean Corpuscular Hemoglobin 31.4 pg (25-34); Mean Corpuscular Hgb Conc 35.8 g/dL (32-36); Mean Corpuscular Volume 87.8 fL (80-100); Mean Platelet Volume 10.7 fL (7.4-10.4); Monocytes % (auto) 12.3 %; Neutrophils # (auto) 4.87 K/uL (1.4-6.5); Neutrophils % (auto) 66.6 %; Platelet Count 185 K/uL (130-400); RDW Coefficient of Variation 12.2 % (11.5-14.5); RDW Standard Deviation 39.3 fL (36.4-46.3); Red Blood Count 5.47 M/uL (4.7-6.1); White Blood Count 7.31 K/uL (4.8-10.8)
[2021-06-05 06:59] LABS: Calcium 8.7 mg/dl (8.5-10.1); Creatinine Clr Calc Pharmacy 197.3 ml/min; Est GFR (African American) 144.9 ml/min; Potassium 3.8 mmol/L (3.5-5.1)
[2021-06-05] MEDS: methIMAzole 5 MG TABLET PO SCH ×2 (08:21→22:08)
[2021-06-05] MEDS: ENOXAPARIN INJ 40 MG/0.4 ML SYR SQ SCH (08:21)
[2021-06-05] MEDS: ASPIRIN 325 MG ECTAB PO SCH (08:21)
[2021-06-05] MEDS: METOPROLOL SUCC 50MG EXT REL TAB PO SCH ×2 (08:21→22:34)
[2021-06-05] MEDS: CHOLECALCIFEROL 5,000 UNITS 125 MCG TAB PO SCH (08:21)
--- NOTE | 2021-06-05 13:54 | Hospitalist Progress Note ---
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 Physical Exam Physical Exam: The patient is awake, alert and oriented 3, well developed and well nourished, normocephalic and atraumatic, lying in bed and in no acute distress. HEENT--PERRL, EOMI, mucous membranes and oropharynx mildly dry Neck--supple. No JVD. No bruits. Thyroid normal, trachea midline, no adenopathy. Heart--normal S1 and S2. No murmurs, rubs or gallops. Lungs--clear bilaterally, no respiratory distress, no accessory muscle use. Abdomen--normal bowel sounds and soft. Mild epigastric and left sided abdominal pain Extremities--no cyanosis or clubbing. No edema. Dermatologic--normal skin turgor, normal color, no abnormal lymph nodes, no rash. Neurologic--some dysarhria Rheumatologic--normal range of motion. Psychiatric--normal affect. Results & Data Results & Data ([facility]) Vital Signs (Past 12 Hours) Vital Signs Temp Pulse Pulse Resp BP BP Pulse Ox 06/05/21 10:57 97.7 F 68 20 172/83 H 96 06/05/21 10:11 71 06/05/21 07:26 98.2 F 58 L 16 155/84 H 95 06/05/21 03:26 97.5 F L 69 18 123/77 99 PG Care Time/CCT Total # of Minutes Spent Total Time Spent with Patient: Total time spent is greater than 50% in coordination of care (as documented) at patient's floor/unit and/or counseling patient: Coding Level of Care Code 67434 Subseq Hosp Care Lvl 2 Diagnoses Left pontine stroke I63.9 Hyperthyroidism E05.90 Benign essential hypertension I10 Stricture of sigmoid colon K56.699 Time Spent (min) 35
[2021-06-05] MEDS: ATORVASTATIN 40 MG TAB PO SCH (22:08)
[2021-06-05] MEDS ORDERED: DOCUSATE SODIUM 100 MG CAP PO ONE (22:32)
[2021-06-06] MEDS: methIMAzole 5 MG TABLET PO SCH ×2 (07:34→22:00)
[2021-06-06] MEDS: ENOXAPARIN INJ 40 MG/0.4 ML SYR SQ SCH (07:34)
[2021-06-06] MEDS: CHOLECALCIFEROL 5,000 UNITS 125 MCG TAB PO SCH (07:34)
[2021-06-06] MEDS: METOPROLOL SUCC 50MG EXT REL TAB PO SCH ×2 (07:34→22:00)
[2021-06-06] MEDS: ASPIRIN 325 MG ECTAB PO SCH (07:34)
[2021-06-06 08:06] LABS: Basophils # (auto) 0.02 K/uL (0-0.2); Basophils % (auto) 0.3 %; Eosinophils # (auto) 0.19 K/uL (0-0.5); Eosinophils % (auto) 2.6 %; Hematocrit (blood only) 47.6 % (42-52); Hemoglobin 17.5 g/dL (14.0-18.0); Immature Granulocytes # (auto) 0.01 K/uL (0.00-0.02); Immature Granulocytes % (auto) 0.1 %; Lymphocytes # (auto) 1.38 K/uL (1.2-3.4); Lymphocytes % (auto) 18.9 %; Mean Corpuscular Hemoglobin 31.7 pg (25-34); Mean Corpuscular Hgb Conc 36.8 g/dL (32-36); Mean Corpuscular Volume 86.2 fL (80-100); Mean Platelet Volume 10.7 fL (7.4-10.4); Monocytes # (auto) 0.86 K/uL (0.11-0.59); Monocytes % (auto) 11.8 %; Neutrophils # (auto) 4.84 K/uL (1.4-6.5); Neutrophils % (auto) 66.3 %; Platelet Count 166 K/uL (130-400); RDW Coefficient of Variation 12.2 % (11.5-14.5); RDW Standard Deviation 38.5 fL (36.4-46.3); Red Blood Count 5.52 M/uL (4.7-6.1)
[2021-06-06 08:42] LABS: BUN Creatinine Ratio 26.2 (10-20); Creatinine Clr Calc Pharmacy 183.8 ml/min; Est GFR (African American) 140.7 ml/min; Est GFR (Non-African American) 121.4 ml/min; Potassium 3.7 mmol/L (3.5-5.1)
--- NOTE | 2021-06-06 14:25 | Hospitalist Progress Note ---
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 Physical Exam Physical Exam: The patient is awake, alert and oriented 3, well developed and well nourished, normocephalic and atraumatic, lying in bed and in no acute distress. HEENT--PERRL, EOMI, mucous membranes and oropharynx mildly dry Neck--supple. No JVD. No bruits. Thyroid normal, trachea midline, no adenopathy. Heart--normal S1 and S2. No murmurs, rubs or gallops. Lungs--clear bilaterally, no respiratory distress, no accessory muscle use. Abdomen--normal bowel sounds and soft. Mild epigastric and left sided abdominal pain Extremities--no cyanosis or clubbing. No edema. Dermatologic--normal skin turgor, normal color, no abnormal lymph nodes, no rash. Neurologic--some dysarhria Rheumatologic--normal range of motion. Psychiatric--normal affect. Results & Data Results & Data ([facility]) Vital Signs (Past 12 Hours) Vital Signs Temp Pulse Resp BP BP Pulse Ox 06/06/21 11:05 98.1 F 63 16 164/82 H 97 06/06/21 07:30 97.5 F L 67 18 159/92 H 97 06/06/21 02:52 97.9 F 71 18 145/88 H 97 PG Care Time/CCT Total # of Minutes Spent Total Time Spent with Patient: Total time spent is greater than 50% in coordination of care (as documented) at patient's floor/unit and/or counseling patient: Coding Level of Care Code 66720 Subseq Hosp Care Lvl 2 Diagnoses Left pontine stroke I63.9 Hyperthyroidism E05.90 Benign essential hypertension I10 Stricture of sigmoid colon K56.699 Time Spent (min) 35
[2021-06-06] MEDS: ATORVASTATIN 40 MG TAB PO SCH (22:00)
--- NOTE | 2021-06-07 08:19 | Hospitalist Progress Note ---
Date of Service June 07, 2021 Assessment & Plan (1) Left pontine stroke: Plan: MRI showed evidence of acute left pontine infarct and also chronic pontine infarct Still some dysarthria and LLE weakness, but improving Given multiple strokes, patient may have yet to be diagnosed predisposition to thrombosis given hx Graves and Ulcerative Colitis Hypercoagulable work-up pending -- will need outpt follow up --> Of note, homocysteine level elevated thus far on labs returned and will check B12/folate/B6/MMA No arrhythmia on monitor thus far but will continue to monitor --> arranged for 30 day event monitor. can consider extending if needed for loop recorder given chronic infarcts as well ECHO did not show any evidence of PFO Per discussion with Neurology, without observed arrhythmia would utilize ASA 81mg daily for now. Holter and if afib would rec anticoagulation at that time -- rx to CM for holter monitor --> Would reach out to [facility] prior to starting anticoagulation in patient known to them with UC (most recent c-scope December 2019 normal) A1c wnl Lipid panel acceptable -- low HDL/LDL Continue PT/OT/speech --> plans for [facility], hopefully tomorrow (2) Hyperthyroidism: Plan: Had not been on medication recently prior to admission/recent follow up with Endocrinology, however most recent notes December 2020 with hx multinodular goiter and graves since 2018, however recent thyroid uptake decreased, c/w subacute thyroiditis. +family hx Graves in mother. Per discussion with Dr Lorenzo on admission, patient to be placed on 20mg BID x 10 days (has received 4 days thus far), then to decrease to 15mg BID on 06/13 for 1 month and will need close f/u with Endocrinology at discharge --> To have FNA of L sided thyroid nodule as outpatient as arranged by Endocrinology Neurology w/ suspicions for some underlying cardioembolic cause given hyperthyroidism/multiple strokes seen on imaging -- will need eckert monitor at d/c and initiation of anticoagulation of occurs (or if evidence of hypercoagulability found on labs, pending) (3) Benign essential hypertension: Plan: BP 157/83 Continued metoprolol Resumed amlodipine-olmesartan 06/07 Continue to monitor (4) Stricture of sigmoid colon: Plan: post bowel resection Plan: discharge to inpatient rehab when accepted, hopefully tomorrow Father able to transport when bed available Admission and Anticipated Discharge Date Admission Date: June 03, 2021 Supervising Physician Co-Signing Physician Notes PA Supervision Note: I did not personally see or examine the patient today, but I verified all dupont points of PATRICIA Fan's assessment and plan with the following exceptions/additions: None Subjective patient evaluated this morning and stopped back to update father at bedside as well. patient states he is doing well. excited and anxious about rehab. improved strength to LE however still somewhat weak but very motivated to make progress-- father at bedside also anxious to get him over there tomorrow and is able to transport when ready. Review of Systems Review of Systems: All systems reviewed & are unremarkable except as noted in HPI & below Physical Exam Physical Exam: The patient is awake, alert and oriented 3, well developed and well nourished, normocephalic and atraumatic, sitting up in chair at bedside HEENT--PERRL, EOMI, mucous membranes and oropharynx mildly dry Neck--supple. No JVD. No bruits. Thyroid normal, trachea midline, no adenopathy. Heart-- regular rate and rhythm, no murmur, rubs or gallops Lungs--clear bilaterally, no respiratory distress, no accessory muscle use. Abdomen--normal bowel sounds and soft, non-tender Extremities--no cyanosis or clubbing. No edema. Dermatologic--normal skin turgor, normal color, no abnormal lymph nodes, no rash. Neurologic--some dysarthria, LLE slightly decreased strength compared to RLE Psychiatric--AOx3, normal affect. Results & Data Results & Data ([facility]) Vital Signs (Past 12 Hours) Vital Signs Temp Pulse Pulse Resp BP BP Pulse Ox 06/07/21 07:59 59 L 06/07/21 07:41 36.9 C 64 18 167/79 H 98 06/07/21 07:25 36.6 C 60 12 100/82 98 06/07/21 04:19 36.7 C 70 24 143/80 H 98 06/07/21 00:13 36.9 C 68 24 165/74 H 97 06/06/21 23:35 65 06/06/21 20:21 36.9 C 69 24 166/68 H 96 Laboratory Results 06/04/21 Range/Units 16:20 Homocysteine 13.8 H (<11.4) umol/L PG Care Time/CCT Total # of Minutes Spent Total Time Spent with Patient: Total time spent is greater than 50% in coordination of care (as documented) at patient's floor/unit and/or counseling patient: Coding Level of Care Code 56610 Subseq Hosp Care Lvl 2 Diagnoses Left pontine stroke I63.9 Hyperthyroidism E05.90 Benign essential hypertension I10 Stricture of sigmoid colon K56.699
[2021-06-07] MEDS: amLODIPine BESYLATE 5 MG TAB PO SCH (09:15)
[2021-06-07] MEDS: ENOXAPARIN INJ 40 MG/0.4 ML SYR SQ SCH (09:15)
[2021-06-07] MEDS: ASPIRIN 325 MG ECTAB PO SCH (09:15)
[2021-06-07] MEDS: CHOLECALCIFEROL 5,000 UNITS 125 MCG TAB PO SCH (09:15)
[2021-06-07] MEDS: methIMAzole 5 MG TABLET PO SCH ×2 (09:16→20:01)
[2021-06-07] MEDS: METOPROLOL SUCC 50MG EXT REL TAB PO SCH ×2 (09:16→20:00)
[2021-06-07] MEDS: OLMESARTAN MEDOXOMIL 20 MG TAB PO SCH (09:16)
[2021-06-07] MEDS: ATORVASTATIN 40 MG TAB PO SCH (20:00)
[2021-06-07] MEDS ORDERED: hydrALAZINE HCL 20 MG/ML VIAL IV STA (20:20)
[2021-06-07] MEDS ORDERED: hydrALAZINE HCL 20 MG/ML VIAL IV PRN (20:21)
[2021-06-08 06:10] LABS: Hematocrit (blood only) 44.4 % (42-52); Hemoglobin 16.3 g/dL (14.0-18.0); Mean Corpuscular Hemoglobin 31.9 pg (25-34); Mean Corpuscular Hgb Conc 36.7 g/dL (32-36); Mean Corpuscular Volume 86.9 fL (80-100); Mean Platelet Volume 10.7 fL (7.4-10.4); Platelet Count 153 K/uL (130-400); RDW Coefficient of Variation 12.1 % (11.5-14.5); RDW Standard Deviation 38.6 fL (36.4-46.3); Red Blood Count 5.11 M/uL (4.7-6.1); White Blood Count 7.71 K/uL (4.8-10.8)
[2021-06-08 06:52] LABS: BUN Creatinine Ratio 28.5 (10-20); Calcium 8.7 mg/dl (8.5-10.1); Creatinine Clr Calc Pharmacy 209.9 ml/min; Est GFR (African American) 148.4 ml/min; Potassium 3.8 mmol/L (3.5-5.1)
[2021-06-08 07:10] LABS: Folate (Folic Acid) 12.3 ng/ml (>5.38)
--- NOTE | 2021-06-08 07:36 | Discharge Summary ---
Date of Service June 08, 2021 Admission HPI Per Admitting Provider This is a 46-year-old male who presented to [facility] emergency department secondary to dysarthria that began approximately 4 days ago. Patient says a day prior to his symptoms he felt fine in his usual state of health without any noted deficits. He noted 4 days ago he woke up in the morning and shortly after taking a shower he noted difficulty talking. He specifically denies any visual changes. He denies any weakness of his arms or legs. He denies any dysphagia. Patient did not seek medical attention as he merely thought his symptoms would improve but since they have been ongoing he sought medical attention today in the emergency department. He denies any recent falls or head injuries. He denies any illicit drug use other than occasional marijuana use and he says that he has smoked this medication as recently as yesterday. He denies any insect or tick bites recently. Patient does report similar symptoms in October of this year that were not as severe. He said he was seen in the [facility] emergency department but did not require hospitalization. He notes that the symptoms resolved. Patient says he occasionally smokes cigarettes while he was in high school but has not smoked since. He says he is not a known diabetic. He notes that he was previously taking aspirin but this was stopped for reasons unclear to him. In the emergency department patient had labs and imaging which independent reviewed. CBC revealed white blood cell count, hemoglobin, hematocrit, and platelet count are all within normal range. Coagulation studies were all noted to be normal. Chemistry profile showed sodium, potassium, BUN, and creatinine were all within normal range. Patient did have a normal magnesium level. There is no significant elevation of his LFTs. Patient did have a TSH that was noted to be low at less than 0.005. His free T4 level was noted to be high at 2.0. A Covid test was performed and was noted to be negative. An EKG showed normal sinus rhythm without changes indicative of acute ischemia. The patient did have a CT scan and a CT angiogram of his head and neck. The CT scan angiogram of his neck did not show any evidence of aneurysm, dissection, or high-grade stenosis. There is also no arterial occlusion. There are no arterial occlusions noted on the CT angiogram portion of his head. There are numerous chronic appearing lacunar infarcts in the basal ganglia, the right paramedian patience, and the right thalamus. The treating emergency room physician has administered antiplatelet therapy in the form of aspirin. At the time my interview the patient was resting comfortably in bed in no distress Admission Exam Per Admitting Provider Constitutional: well developed and well nourished; no acute distress Eyes: PERRL, conjunctivae normal, anicteric sclerae ENMT: Ears: no hearing impairment and no external ear abnormality Mouth: no oropharynx abnormality Neck: trachea midline Respiratory: normal respiratory effort, lungs clear to auscultation Cardiovascular: Rate/Rhythm: regular rate and regular rhythm Gastrointestinal (Abdomen): normal bowel sounds, soft, nontender, no hepatosplenomegaly Musculoskeletal: No calf tenderness Skin: no rashes Neurologic: Patient was able to move all four extremities with equal strength and no noted weakness in any of his extremities. His cranial nerves II through XII are grossly intact with the exception of a left facial droop. Psychiatric: A+Ox3, euthymic affec Principal Diagnosis CVA, Hyperthyroidism Discharge Exam The patient is awake, alert and oriented 3, well developed and well nourished, normocephalic and atraumatic, standing at the end of the bed HEENT--PERRL, EOMI, mucous membranes and oropharynx moist Neck--supple. No JVD. No bruits. +multinodular goiter,, trachea midline Heart-- regular rate and rhythm, no murmur, rubs or gallops Lungs--clear bilaterally, no respiratory distress, no accessory muscle use. Abdomen--normal bowel sounds and soft, non-tender Extremities--no cyanosis or clubbing. No edema. Dermatologic--normal skin turgor, normal color, no abnormal lymph nodes, no rash. Neurologic--continued dysarthria (slightly improved), slight L facial droop, LLE slightly decreased strength compared to RLE (improving), improved gait and a mbulating in room upon evaluation Psychiatric--AOx3, pleasant and cooperative, anxious about getting to rehab [facility] Discharge Data Allergies Allergy/AdvReac Type Severity Reaction Status Date / Time lisinopril Allergy Verified 06/03/21 09:38 Consultations 06/03/21 09:48 ED Decision to Admit Stat 06/03/21 13:55 Consult Neurology Routine Ordered Studies Head CT 06/03/21 08:26 CT head/brain wo con CLINICAL HISTORY: Stroke Alert Technique: Contiguous axial CT images of the head were acquired from the base of the skull to the vertex without intravenous contrast administration. Images were viewed in brain, subdural and bone windows. Automated dose lowering techniques and/or adjustment according to patient size were utilized for this exam. Comparison: None available at the time of this dictation. Findings: The ventricles, basal cisterns, and cerebral sulci are normal. There is no acute intracranial hemorrhage or evidence of acute territorial infarction. Neither mass effect, shift of the midline structures, nor abnormal extra-axial fluid collections are shown. Imaged portions of the paranasal sinuses and mastoid air cells are clear. The orbits appear normal. There are no acute fractures of the calvaria or scalp swelling. Impression: No acute intracranial hemorrhage, no evidence of acute territorial infarction or other acute intracranial disease process. ACT 112: Negative or not required by law. Electronically signed by: Noel Solis M.D. 06/03/2021 8:50 AM Head CTA 06/03/21 08:38 CT angio neck with con, CT angio head w con CLINICAL HISTORY: 46 years-old Male with Strokelike symptoms-difficulty talking. Acute strokelike symptoms COMPARISON STUDY: Head CT of same day TECHNIQUE: Following the IV administration of 118 mL of Optiray, CT angiogram of the head and neck was performed from the aortic arch to the skull apex. Images are reviewed in the axial, sagittal, and coronal planes. 3-D MIPS images are created and assessed. IV contrast was administered without complication. All measurements were calculated based on NASCET criteria. A dose lowering technique was utilized adhering to the principles of ALARA. CT DOSE: 1184.33 mGycm FINDINGS: Three-vessel morphology of the thoracic aortic arch. Patency of the innominate and imaged subclavian arteries. The common carotid arteries are widely patent. There is minimal atherosclerotic plaque of the proximal cervical segment of the left ICA. The middle and anterior cerebral arteries appear patent. The cerebral venous sinuses are patent. Codominant and widely patent vertebral arteries. The basilar and posterior cerebral arteries are patent. There is no aneurysm, dissection, high-grade stenosis or arterial occlusion identified. The lung apices are clear. There is no pneumothorax. Multinodular thyroid goiter. There is no prevertebral edema. Polypoid mucosal thickening of the maxillary sinuses bilaterally. Spondylitic spurring of the upper thoracic spine. Evaluation of the intracranial structures demonstrates chronic appearing lacunar infarcts of the basal ganglia with 2 cm area of encephalomalacia within the right paramedian patience. Age-indeterminate 5 mm lacunar infarct of the right thalamus. IMPRESSION: 1. Unremarkable CTA of the head and neck without aneurysm, dissection, high- grade stenosis or arterial occlusion. 2. Numerous chronic appearing lacunar infarcts of the basal ganglia with a 2 cm area of encephalomalacia within the right paramedian patience suggestive of a chronic infarct. 3. Age-indeterminate subcentimeter lacunar infarct of the right thalamus. 4. Multinodular thyroid goiter. 5. Mild polypoid mucosal thickening of the maxillary sinuses. ACT 112: Negative or not required by law. The above report was generated using voice recognition software. It may contain grammatical, syntax or spelling errors. Electronically signed by: Josiah Longoria M.D. 06/03/2021 9:16 AM Neck CTA 06/03/21 08:38 CT angio neck with con, CT angio head w con CLINICAL HISTORY: 46 years-old Male with Strokelike symptoms-difficulty talking. Acute strokelike symptoms COMPARISON STUDY: Head CT of same day TECHNIQUE: Following the IV administration of 118 mL of Optiray, CT angiogram of the head and neck was performed from the aortic arch to the skull apex. Images are reviewed in the axial, sagittal, and coronal planes. 3-D MIPS images are created and assessed. IV contrast was administered without complication. All measurements were calculated based on NASCET criteria. A dose lowering technique was utilized adhering to the principles of ALARA. CT DOSE: 1184.33 mGycm FINDINGS: Three-vessel morphology of the thoracic aortic arch. Patency of the innominate and imaged subclavian arteries. The common carotid arteries are widely patent. There is minimal atherosclerotic plaque of the proximal cervical segment of the left ICA. The middle and anterior cerebral arteries appear patent. The cerebral venous sinuses are patent. Codominant and widely patent vertebral arteries. The basilar and posterior cerebral arteries are patent. There is no aneurysm, dissection, high-grade stenosis or arterial occlusion identified. The lung apices are clear. There is no pneumothorax. Multinodular thyroid goiter. There is no prevertebral edema. Polypoid mucosal thickening of the maxillary sinuses bilaterally. Spondylitic spurring of the upper thoracic spine. Evaluation of the intracranial structures demonstrates chronic appearing lacunar infarcts of the basal ganglia with 2 cm area of encephalomalacia within the right paramedian patience. Age-indeterminate 5 mm lacunar infarct of the right thalamus. IMPRESSION: 1. Unremarkable CTA of the head and neck without aneurysm, dissection, high- grade stenosis or arterial occlusion. 2. Numerous chronic appearing lacunar infarcts of the basal ganglia with a 2 cm area of encephalomalacia within the right paramedian patience suggestive of a chronic infarct. 3. Age-indeterminate subcentimeter lacunar infarct of the right thalamus. 4. Multinodular thyroid goiter. 5. Mild polypoid mucosal thickening of the maxillary sinuses. ACT 112: Negative or not required by law. The above report was generated using voice recognition software. It may contain grammatical, syntax or spelling errors. Electronically signed by: Josiah Longoria M.D. 06/03/2021 9:16 AM Brain MRI 06/03/21 10:48 MR brain wo/w con HISTORY: 46 years-old Male cva acute strokelike symptoms COMPARISON: CT head, CTA head and neck 06/03/2021 TECHNIQUE: Multiplanar multisequence MRI the brain was obtained both with and without the use of Gadavist FINDINGS: 1.3 x 1.0 x 0.8 cm area of restricted diffusion involves the left aspect of the mid patience on image 8 series 4 with decreased ADC signal. There is encephalomalacia from chronic right pontine infarct. No acute territorial infarct. There is no pathologic blooming artifact. No acute intracranial hemorrhage, midline shift, abnormal extra-axial collection, hydrocephalus or intracranial mass identified. Chronic lacunar infarcts of the basal ganglia and thalami with mild associated encephalomalacia and gliosis. There is mild wallerian degeneration of the thalami. There is no abnormal intra-axial or extra-axial enhancement identified. The cerebral venous sinuses and major arterial flow voids appear patent. The mastoid air cells are clear. Mild mucosal thickening of the ethmoid air cells with polypoid mucosal thickening of the maxillary sinuses measuring up to 2.67 m on the right. The skull, orbits and soft tissues are unremarkable. IMPRESSION: 1. 1.3 cm acute infarct of the left paramedian patience. 2. Chronic right pontine infarct with numerous chronic lacunar infarcts of the basal ganglia. 3. No acute intracranial hemorrhage, midline shift or abnormal enhancement. ACT 112: Negative or not required by law. The above report was generated using voice recognition software. It may contain grammatical, syntax or spelling errors. Electronically signed by: Josiah Longoria M.D. 06/03/2021 1:18 PM Videofluoroscopic Swallow 06/04/21 14:30 FL video swallow HISTORY: Brainstem stroke. Evidence for aspiration. TECHNIQUE: Video fluoroscopic evaluation of swallowing was performed in the AP and lateral projections by the speech pathology staff. The patient is fed nectar-thick and thin liquid barium, a barium coated wafer, and barium pudding. FLUOROSCOPY TIME: 1.6 minutes. A cine loop submitted.. COMPARISON STUDY: None. FINDINGS: There is normal hyoid excursion and epiglottic deflection. Slight delayed initiation of swallowing. This resulted in a small amount of aspiration with the thin liquid barium only. No aspiration identified with the remaining barium consistencies. IMPRESSION: 1. A small amount of silent aspiration identified with the thin liquid barium only. 2. Please see the speech pathologist report for detailed findings and recommendations. ACT 112: Negative or not required by law. Electronically signed by: Flash Cartagena M.D. 06/04/2021 3:11 PM Hospital Course (1) Left pontine stroke: MRI showed evidence of acute infarct of left paramedian patience, chronic R pontinue infarct with numerous chronic lacunar infarcts of basal ganglia Still some dysarthria and LLE weakness, but with continued improvements and ambulating with less difficulty in the room prior to discharge Given multiple strokes, patient may have yet to be diagnosed/predisposition to thrombosis given hx Graves and Ulcerative Colitis Hypercoagulable work-up pending -- will need outpt follow up --> Of note, homocysteine level elevated thus far on labs returned and will check B12/folate/B6/MMA --> started on B12/folate prior to d/c for hyperhomocysteinemia --> Will need outpt f/u for hypercoag panel No arrhythmia on monitor thus far but will continue to monitor --> arranged for 30 day event monitor. can consider extending if needed for loop recorder given chronic infarcts as well ECHO did not show any evidence of PFO Per discussion with Neurology, without observed arrhythmia would utilize ASA 81mg daily for now. Holter and if afib would rec anticoagulation at that time -- rx to CM for holter monitor (If evidence for arrhythmia, would reach out to [facility] prior to starting anticoagulation in patient known to them with UC (most recent c-scope December 2019 normal, Dr Rodriguez)) A1c wnl Lipid panel acceptable -- low HDL/LDL and started on Lipitor 80mg, continued at discharge Continued PT/OT/speech with improvement and arrangements made for acute inpatien t rehab at [facility] (2) Hyperthyroidism: Had not been on medication recently prior to admission/recent follow up with Endocrinology, however most recent notes December 2020 with hx multinodular goiter and graves since 2019, however recent thyroid uptake decreased, c/w subacute thyroiditis. +family hx Graves in mother. TSH <0.005, Free T4 elevated 2.[address] Lorenzo on admission --> patient to be placed on 20mg BID x 10 days, then to decrease to 15mg BID for 1 month and will need close f/u with Endocrinology at discharge --> To have FNA of L sided thyroid nodule as outpatient as arranged by Endocrinology Neurology w/ suspicions for some underlying cardioembolic cause given hyperthyroidism/multiple strokes seen on imaging -- will need eckert monitor at d/c and initiation of anticoagulation of occurs (or if evidence of hypercoagulability found on labs, pending) --> Holter monitor to be delivered to home and father to bring to [facility] 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 this afternoon Total Time Total Time Spent Total Time Spent (In Minutes): 55 Discharge Plan Discharge Items Patient Disposition: Transfer Inpatient Rehab Fac Reason For Visit: CVA Discharge Diagnosis: CVA, Hyperthyroidism Goals: You have been hospitalized for an acute medical problem. During your stay at [facility], we have made an effort to correct the problem that brought you to the hospital while keeping you as comfortable as possible. Medications were used to bring your condition under control and your discharge instructions will include directions for any medications you should take after leaving the hospital. Please make sure you see your Primary Care Provider as part of your follow up plan. Activity: As commented below Activity Comment: advance with therapy Non-emergency contact: Primary Care Provider Call non-emergency contact if: you have any medication questions, your symptoms worsen and your pain is not controlled Follow-up/Referrals: Miguel Faye MD [Physician] - (1 month) Siva Lorenzo MD [Physician] - (within the month, Graves, Hyperthyroidism) Brooks López MD [Primary Care Provider] - Diet: Regular Diet Texture: Easy to Chew Liquid Consistency: Bourbon thick Addtl Attending Provider Instructions: You have been hospitalized and evaluated by Neurology following imaging of your brain. It was revealed multiple previous/chronic strokes in different vascular regions which raise the risk of a cardioembolic stroke (from the heart), possibly from some underlying atrial fibrillation from your undertreated thyroid. Imaging of your heart did not reveal any structural issues, and you have been monitoring on telemetry and no arrhythmias were observed. For this reason, you are being sent home on ASPIRIN 81mg daily, and hypercoagulable labs are pending. You have also been started on lipitor daily and this is also continued for stroke prevention. If these reveal abnormality, or if you have any evidence of arrhythmia on the 30 day personnel monitor, you would be more suited on anticoagulation, but per d iscussion with Neurology, without clear evidence they would recommend aspirin at this time. Your TSH was checked, and is undetectable. Discussion was had with Endocrinology and they recommended starting methimazole 20mg by mouth twice daily (which was started while inpatient), and then should decrease to 15mg by mouth twice daily starting on 06/13 and you should have follow up with Endocrinology in the next month, as they would also like you to have a fine needle aspiration of thyroid nodule not previously done in the past. You have been evaluated by PT/OT and recommendations are for acute inpatient rehab. You will also have continued speech therapy. You should continue a regular, easy to chew, nectar thick diet ot prevent aspiration. You should follow up with your PCP in the next 7-10 days. Please return to the emergency department with any increased weakness, speech difficulties, confusion, fever, chest pain, shortness of breath or for any other symptoms that are concerning for you. It has been a pleasure being a part of the medical team providing for you while you have been in the hospital. Take care! Addtl [employer] Provider Instructions: Risk Factors for Stroke: You can reduce your chances of stroke by working with your medical provider to adopt a healthy lifestyle. Some specific ways to lower your chance of stroke are: * If you are a smoker, now is the time to stop smoking cigarettes * If you are diabetic, improve the control of your blood sugars * Avoid excessive amounts of alcohol * Control high blood pressure * Lose weight if you are overweight * Be sure to lead an active lifestyle * Eat a healthy diet low in salt, cholesterol and fat You should know about other risk factors for stroke that you are unable to control. These include: * Age 55 years or older * Male gender * Certain racial groups: , or / * Family History of Stroke, Mini stroke or Heart Attack * Sickle Cell Disease Follow Up: It is important for you to keep your follow up appointments with your medical provider. Who to Call and When: Medical Emergencies: Call 911 immediately if you experience any of the following warning signs and symptoms of Stroke: * Sudden numbness or weakness of the face, arm or leg, especially on one side of the body * Sudden confusion, trouble speaking or understanding * Sudden trouble seeing in one or both eyes * Sudden trouble walking, dizziness, loss of balance or coordination * Sudden severe headache with no cause Do not delay calling 911 if you experience any warning signs or symptoms of a stroke. Delay in seeking medical attention may affect what treatments can be given to you. . Pending Studies at Discharge: Yes Studies:: Hypercoagulable Labs Stand-Alone Forms: [facility] Skilled Items Patient informed of condition?: Yes DNR: No Discharge Level of Care: Acute rehab Communicable Disease: No Discharge Prognosis: Improving Lines: None Urinary Catheter: No Medications and DC Order Prescriptions: New atorvastatin 40 mg Tablet 80 mg PO QPM Qty: 30 RF: 0 aspirin 81 mg Tablet,Delayed Release (Dr/Ec) 81 mg PO QAM Qty: 30 RF: 0 methimazole 5 mg Tablet 20 mg PO BID Qty: 10 RF: 0 methimazole 5 mg tablet 15 mg PO BID 30 Days Qty: 180 RF: 0 folic acid 1 mg tablet 1 mg PO DAILY Qty: 30 RF: 0 cyanocobalamin (vitamin B-12) 1,000 mcg capsule 1,000 mcg PO DAILY Qty: 30 RF: 0 Continued metoprolol succinate 100 mg tablet extended release 24 hr 100 mg PO BID Qty: 180 RF: 1 vitamin E acetate 134 mg (200 unit) Capsule 0 mg PO QAM RF: 0 cholecalciferol (vitamin D3) 125 mcg (5,000 unit) capsule 125 mcg PO QAM RF: 0 amlodipine-olmesartan 5-20 mg tablet 1 tab PO QAM RF: 0 Discharge Orders: Discharge Order (Routine); Ordered 06/08/21 Ordered By: iLzzy Patrick/Other Patient Handouts: 5 Steps for Eating Healthier Admission Data Admit Date/Time: 06/03/21 10:45 Attending Provider: Tana Garcia Admit Provider: Sam Montalvo Primary Care Provider: Brooks López Other Providers: Sam Montalvo ; Miguel Faye ; [facility] Other Interventions: Discharge Summary Assessment (RN) Last Done: 06/08/21 13:18 Coding Level of Care Code D/C DAY MANAGEMENT >30 MINS Diagnoses Left pontine stroke I63.9 Hyperthyroidism E05.90 Benign essential hypertension I10 Stricture of sigmoid colon K56.699
--- NOTE | 2021-06-08 07:55 | Neurology Progress Note ---
Date of Service June 08, 2021 Assessment & Plan (1) Left pontine stroke: (2) H/O: stroke: Plan: Acute left pontine stroke presenting with dysarthria without significant associated right hemiparesis. Patient does have a left lower facial droop as well as left lower extremity hyperreflexia, clonus, and Babinski that are likely related to the chronic right paramedian pontine infarct. 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 He does not appear to have significant weakness for either upper limb. Although hypertension may be a stroke risk factor for this patient, he also has a history of Graves' disease which may increase his risk for atrial fibrillation. As his imaging suggests multiple previous/chronic strokes in different vascular territories cardioembolic stroke is certainly possible if not likely in this patient. It is notable that his CT angiography is unremarkable, his lipids are generally low although he has a low HDL as well. Ulcerative colitis is also a likely stroke risk. Would recommend daily low-dose aspirin, 81 mg/day for secondary stroke risk reduction. However, anticoagulation may be a better option given the likelihood of atrial fibrillation in this patient. He will need 30-day mobile cardiac outpatient telemetry. Would also recommend a hypercoagulable panel. 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 Last GI note from December 2019 suggested a normal colonoscopy. He will also need additional follow-up with endocrinology. Admission and Anticipated Discharge Date Admission Date: June 03, 2021 Results & Data ([facility]) Vital Signs (Past 12 Hours) Vital Signs Temp Pulse Pulse Resp BP Pulse Ox 06/08/21 07:28 36.7 C 68 20 153/77 H 98 06/08/21 07:14 63 06/08/21 04:20 36.6 C 68 18 154/80 H 97 06/08/21 01:38 70 06/07/21 23:43 36.8 C 69 18 166/84 H 98 PG Care Time/CCT Total # of Minutes Spent Total Time Spent with Patient: Total time spent is greater than 50% in coordination of care (as documented) at patient's floor/unit and/or counseling patient: Coding Diagnoses Left pontine stroke I63.9 H/O: stroke Z86.73
[2021-06-08] MEDS: CHOLECALCIFEROL 5,000 UNITS 125 MCG TAB PO SCH (08:33)
[2021-06-08] MEDS: amLODIPine BESYLATE 5 MG TAB PO SCH (08:33)
[2021-06-08] MEDS: methIMAzole 5 MG TABLET PO SCH (08:33)
[2021-06-08] MEDS: ENOXAPARIN INJ 40 MG/0.4 ML SYR SQ SCH (08:34)
[2021-06-08] MEDS: METOPROLOL SUCC 50MG EXT REL TAB PO SCH (08:34)
[2021-06-08] MEDS ORDERED: ASPIRIN 81 MG ECTAB PO SCH (09:00)
[2021-06-08] MEDS: OLMESARTAN MEDOXOMIL 20 MG TAB PO SCH (10:06)
[2021-06-08] MEDS ORDERED: STROKE PATIENT DISCHARGE STA (12:19)
[2021-06-10 01:06] LABS: Anti Cardiolipin Ab IgG <2.0 GPL-U/mL; Anti Cardiolipin Ab IgM <2.0 MPL-U/mL; Anti-Thrombin III Activity 141 % normal (80-135); B2 Glycoprotein IgG <2.0 U/mL (<20.0); B2 Glycoprotein IgM <2.0 U/mL (<20.0); PTT LA Screen 34 sec (<=40); Protein S Functional(Activity) 102 % (70-150)
[2021-06-11 01:16] LABS: Factor 5 Mutation NEGATIVE
[2021-06-11 18:11] LABS: Vitamin B6 3.1 ng/mL (2.1-21.7)
== END 2021-06-08 13:46 | DRG 65 ==
LOC: ED 08:17 → 2N 10:45 → SUATTDRO 10:45 → 2N 12:29
DX: R47.1 Dysarthria and anarthria; R29.810 Facial weakness; Z83.3 Family history of diabetes mellitus; Z87.891 Personal history of nicotine dependence; I63.40 Cerebral infarction due to embolism of unspecified cerebral artery; I10 Essential (primary) hypertension; I48.0 Paroxysmal atrial fibrillation; K51.90 Ulcerative colitis, unspecified, without complications; E72.11 Homocystinuria; Z86.73 Personal history of transient ischemic attack (TIA), and cerebral infarction without residual deficits; E04.1 Nontoxic single thyroid nodule